=== PATIENT | female | born 1940 | race Caucasian/White ===

== ENCOUNTER 2024-01-30 19:51 | Inpatient (IN) ==
--- NOTE | 2024-01-30 20:13 | Emergency Department Note ---
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 Could not sleep last night to her work of breathing. Not on oxygen during the day normally but used it today with minimal improvement. Usually uses a few liters of oxygen at night. No syncope reported but feels a bit lightheaded. No headache. No abdominal pain or nausea or vomiting. Cough little bit bloody at times. States compliance with home Eliquis. A bit of pain with coughing in the mid chest. No leg swelling. No other sick contacts. States it feels like she has pneumonia she is gets this all the time. Recently switched from [facility] to [facility] here so came here for evaluation. Distant former smoker. States she had testing for CPAP for did not tolerate the mask. Denies significant confusion at this time. PAST MEDICAL HISTORY: As noted above MEDICATIONS: Reviewed home medications SOCIAL HISTORY: , former smoker PHYSICAL EXAM: GENERAL: alert and oriented seated in the stretcher with oxygen on mild tachypnea. Head: normocephalic and atraumatic EYES: No injection, discharge or icterus. EOMI. NECK: Trachea midline. ENT: Mucous membranes pink and moist. LUNGS: Airway patent. Mild work of breathing. Breath sounds with occasional scattered lower feel rhonchi. HEART: Regular rate and rhythm. No chest wall tenderness ABDOMEN: Soft and non-tender, without guarding or rebound. SKIN: Acyanotic, warm, dry, without rashes EXTREMITIES: Without swelling, tenderness or deformity NEUROLOGICAL: No focal deficits. No aphasia. No facial droop or slurred speech. EK bpm normal sinus rhythm. No PVC or PAC. No acute ST segment elevation or depression left axis and QTc of 456. CONTINUOUS CARDIAC MONITORING: was ordered and showed a heart rate of 70s to 80s bpm in normal sinus rhythm Patient's laboratory studies and imaging reviewed. Differential includes Reactive airway disease, pneumonia, pneumothorax, COPD, CHF, infections, cardiac ischemia, pulmonary embolism, musculoskeletal, gastrointestinal, as well as other pathologies. IMPRESSION/MEDICAL DECISION MAKING: Patient ILD/COPD mixed picture according to recent pulmonary note from October that was reviewed from Dr. Cali. Hypoxic on room air. Requiring 5 L oxygen supplementation. Some work of breathing but no encephalopathy. VBG sent blood work sent. Does not appear significantly fluid overloaded. Chest x-ray obtained look for signs of pneumonia or consolidation. Little bit of reproducible mid chest pain likely more from work of breathing. EKG without findings of STEMI. Troponin sent to exclude ACS but lower suspicion. Anticoagulated with Eliquis and lower suspicion for VTE/PE. Afebrile here but respiratory viral panel was checked. Will trial a DuoNeb and a dose of steroids to see if this helps with her symptoms. Respiratory viral panel here negative. Troponin 19.7 not severely elevated no priors for comparison. No evidence of hepatitis. No significant renal dysfunction or severe electrode abnormality. VBG pH of 7.34 CO2 of 57 but no severe acidosis. Normal white count and hemoglobin. 1 view chest x-ray reviewed by myself and interpreted without evidence of pneumothorax. Appears to be some increased airspace opacities. Will cover with a dose of cefepime at this time given her underlying structural lung disease and azithromycin for atypical coverage. Discussed with her given her increased heart requirement and shortness of breath further care at the hospital with her underlying lung disease. Patient was given a dose of steroid and DuoNeb here as well as there may be some component of COPD. Mildly improved still needing almost 5 L of oxygen here to sat in the low 90s. Discussed with her and her recommendations and she is agreeable to stay. Hospitalist contacted. DIAGNOSIS: Hypoxia, pneumonia, COPD exacerbation, ILD DISPOSITION: Hospitalist will evaluate Patient was agreeable with this plan. Past Med/Surg History Problem List (Updated 01/30/24 @ 21:28 by Ed Denise M.D.) PNA (pneumonia) (Acute) Hypoxia (Acute) Pneumoconiosis Ex-smoker SOB (shortness of breath) on exertion AND C/P RANDOM AND WITH ACTIVITY (NO CHANGES FROM BASELINE) FOLLOWS PULMONOLOGY DR ANN/KAN ILD (interstitial lung disease) (Acute) COPD (chronic obstructive pulmonary disease) (Acute) Encounter for pre-operative examination Lumbar stenosis with neurogenic claudication (Acute 03/15/14) Medical History (Updated 01/30/24 @ 21:28 by Ed Denise M.D.) Oxygen dependent O2 4 L HS Sleep apnea DEVICE RECOMMENDED AND DECLINED Legally blind Acoustic neuroma HX GAMMA KNIFE RADIATION Lung cancer DX 2 YR AGO, PT DECLINES TREATMENTS Fibromyalgia History of colon polyps BENIGN Ulcerative colitis Inflammatory bowel disease Celiac disease Back problem Hypothyroid Neuropathy FEET Diarrhea CHRONIC Acid reflux HTN (hypertension) Surgical History History of cardiac cath approx 6 years ago. [facility] [place]. No stents. History of left knee replacement History of foot surgery LEFT History of total right hip replacement History of lung biopsy History of carpal tunnel surgery of right wrist History of carpal tunnel surgery of left wrist History of hysterectomy History of cholecystectomy History of back surgery TOTAL OF 3 , 1 WAS A FUSION History of lumbar fusion Family History Other Family history of diabetes mellitus Social History Smoking Status: Never smoker Second Hand Exposure: No; Do You Dip or Chew Tobacco: No; Hx Alcohol Use: No Hx Substance Use: No Preferred Language: Guatemalan Communication Ability: Effective Communication Ability Comment: LEGALLY BLIND/USES MAGNIFYING GLASS Database Consultant Required: No Beliefs That Will Affect Care: None Current Living Situation: Spouse Feels Safe at Home: Yes Assistive Devices: Denture - Upper, Denture - Lower, Glasses, Oxygen - at Night and Walker Allergies Allergies Allergy/AdvReac Type Severity Reaction Status Date / Time ondansetron Allergy Unknown CAN'T Verified 11/13/23 12:44 BREATHE risedronate sodium Allergy Unknown GI UPSET, Verified 11/13/23 12:44 JAW NUMB rosuvastatin Allergy Unknown SHOULDER Verified 11/13/23 12:44 PAIN simvastatin Allergy Unknown MUSCLE Verified 11/13/23 12:44 SPASMS blue dye AdvReac Unknown VOMITING Verified 11/13/23 12:44 oseltamivir AdvReac Unknown VOMITING Verified 11/13/23 12:44 Home Meds Home Medications Medication Instructions Recorded Confirmed amlodipine 5 mg tablet 5 mg PO HS 12/28/21 01/30/24 ascorbic acid (vitamin C) 1,000 mg 1 g PO QDL 12/28/21 01/30/24 tablet (Vitamin C) aspirin 81 mg tablet,delayed 81 mg PO DAILY 12/28/21 01/30/24 release cholecalciferol (vitamin D3) 25 5,000 unit PO QDL 12/28/21 01/30/24 mcg (1,000 unit) capsule (Vitamin D3) diphenoxylate-atropine 2.5 1 tab PO UD PRN Diarrhea 12/28/21 01/30/24 mg-0.025 mg tablet (Lomotil) gabapentin 600 mg tablet 600 mg PO HS 12/28/21 01/30/24 levothyroxine 75 mcg capsule 75 mcg PO QAM 12/28/21 01/30/24 losartan 100 mg tablet 100 mg PO HS 12/28/21 01/30/24 meloxicam 15 mg tablet 15 mg PO QAM 12/28/21 11/13/23 multivitamin 1 cap PO QDL 12/28/21 01/30/24 omeprazole 20 mg tablet,delayed 20 mg PO BID 12/28/21 01/30/24 release zinc 50 mg capsule 50 mg PO QDL 12/28/21 01/30/24 apixaban 5 mg tablet (Eliquis) 5 mg PO BID 11/13/23 01/30/24 colestipol 1 gram tablet 1 g PO DAILY Diarrhea 11/13/23 01/30/24 Results & Data (ED) Vital Signs Vital Signs - 24 hr 01/30/24 19:53 01/30/24 19:59 01/30/24 20:01 Temperature 36.6 C Temperature Source Temporal Artery Scan Pulse Rate 88 Respiratory Rate 22 Respiratory Effort / Characteristics Non-Labored Spontaneous Respiratory Depth Normal Respiratory Pattern Regular Blood Pressure 178/82 H Blood Pressure Mean 114 Pulse Oximetry 85 L 85 L Oxygen Delivery Method Room Air Nasal Cannula Room Air Oxygen Flow Rate 3 Sepsis Recent Fever Within 48 Hours No Sepsis New/Unexplained Change in Mental Status N/A Sepsis Action Taken by Nursing No Action Required Oxygen Flow Rate - Titration 3 Pulse Oximetry Post Tiitration 91 01/30/24 20:02 01/30/24 20:25 01/30/24 22:06 Temperature Temperature Source Pulse Rate 87 85 Respiratory Rate 26 H Respiratory Effort / Characteristics Respiratory Depth Respiratory Pattern Blood Pressure 167/78 H Blood Pressure Mean 107 Pulse Oximetry 94 Oxygen Delivery Method Nasal Cannula Oxygen Flow Rate 4 Sepsis Recent Fever Within 48 Hours Sepsis New/Unexplained Change in Mental Status Sepsis Action Taken by Nursing Oxygen Flow Rate - Titration Pulse Oximetry Post Tiitration Laboratory Data 01/30/24 20:18 01/30/24 21:43 Lab Results 01/30/24 01/30/24 Range/Units 20:18 21:43 WBC 7.63 (4.8-10.8) K/ul RBC 5.07 (4.20-5.40) M/uL Hgb 14.6 (12.0-16.0) g/dl Hct 45.0 (37.0-47.0) % MCV 88.8 (80.0-100.0) fL MCH 28.8 (25.0-34.0) pg MCHC 32.4 (32.0-36.0) g/dL RDW Std Deviation 44.6 (36.4-46.3) fL RDW Coeff of Alvina 13.8 (11.5-14.5) % Plt Count 271 (130-400) K/uL MPV 8.9 L (9.4-12.4) fL Immature Gran % (Auto) 0.4 % Neut % (Auto) 72.1 % Lymph % (Auto) 15.7 % [place] % (Auto) 6.4 % Eos % (Auto) 5.0 % Baso % (Auto) 0.4 % Neut # (Auto) 5.50 (1.40-6.50) K/uL Lymph # (Auto) 1.20 (1.20-3.40) K/uL [place] # (Auto) 0.49 (0.11-0.59) K/uL Eos # (Auto) 0.38 (0.00-0.50) K/uL Baso # (Auto) 0.03 (0.00-0.20) K/uL Immature Gran # (Auto) 0.03 (0.01-0.20) K/uL PT Cancelled 10.5 INR Cancelled 1.0 APTT Cancelled 31 PTT Ratio Cancelled 1.2 VBG pH 7.34 L (7.36-7.41) VBG pCO2 57 H (38-50) mmHg VBG pO2 25 mmHg VBG HCO3 31 mmol/L VBG O2 Saturation < 60.0 % VBG Base Excess 3.5 mEq/L Sodium 133 L (136-145) mmol/L Potassium TNP 4.0 Chloride 98 (98-107) mmol/L Carbon Dioxide 29 (21-32) mmol/L Anion Gap 6 (3-11) BUN 16 (6-23) mg/dl Creatinine 1.08 (0.6-1.2) mg/dl Est Cr Clr Drug Dosing Not Reportable Est GFR ( Amer) 54.2 ml/min Est GFR (Non-Af Amer) 46.8 ml/min BUN/Creatinine Ratio 14.8 (10-20) Glucose 120 H (70-99(Fasting)) mg/dl Calcium 9.5 (8.6-10.3) mg/dl Magnesium 2.0 (1.7-2.4) mg/dl Total Bilirubin 0.4 (0.2-1.0) mg/dl AST TNP 18 ALT 10 (7-52) U/L Alkaline Phosphatase 106 H (34-104) U/L Troponin I High Sens 19.7 H (0-14) pg/ml Total Protein 7.3 (6.0-8.3) gm/dl Albumin 4.3 (3.4-5.0) gm/dl Globulin 3.0 (2.5-4.0) gm/dl Albumin/Globulin Ratio 1.4 (0.9-2) Urine Color Yellow Urine Appearance Clear (Clear) Urine pH 7.0 (4.5-7.5) Ur Specific [place] 1.009 (1.000-1.030) Urine Protein Negative (Negative) Urine Glucose (UA) Negative (Negative) Urine Ketones Negative (Negative) Urine Blood Negative (Negative) Urine Nitrite Negative (Negative) Urine Bilirubin Negative (Negative) Urine Urobilinogen Negative (Negative) Ur Leukocyte Esterase Trace H (Negative) Urine WBC (Auto) 0-5 (0-5) /hpf Urine RBC (Auto) 0-2 (0-2) /hpf U Hyaline Cast (Auto) 0-2 (0-2) /lpf U Epithel Cells (Auto) 0-2 (0-2) /hpf Urine Bacteria (Auto) None Seen (None Seen) Adenovirus (PCR) Not Detected (NotDetected) B. pertussis DNA (PCR) Not Detected (NotDetected) B.parapertussis DNA PCR Not Detected (NotDetected) C. pneumoniae DNA (PCR) Not Detected (NotDetected) Coronavirus OC43 (PCR) Not Detected (NotDetected) Coronavirus HKU1 (PCR) Not Detected (NotDetected) Coronavirus 229E (PCR) Not Detected (NotDetected) SARS-CoV-2 (PCR) Not Detected (NotDetected) Coronavirus NL63 (PCR) Not Detected (NotDetected) Human Metapneumovir PCR Not Detected (NotDetected) Influenza Type A (PCR) Not Detected (NotDetected) Influenza Type B (PCR) Not Detected (NotDetected) M. pneumoniae (PCR) Not Detected (NotDetected) Parainfluenza 1 (PCR) Not Detected (NotDetected) Parainfluenza 2 (PCR) Not Detected (NotDetected) Parainfluenza 3 (PCR) Not Detected (NotDetected) Parainfluenza 4 (PCR) Not Detected (NotDetected) RSV (PCR) Not Detected (NotDetected) Entero/Rhino (PCR) Not Detected (NotDetected) Administered Medications Discontinued Medications Albuterol (Albut/Ipratrop 3mg/0.5mg Neb 3 Ml Vial) 3 ml NEB NOW STA; Protocol Stop: 01/30/24 20:14 Last Admin: 01/30/24 20:32 Dose: 3 ml Documented By: TYLER Azithromycin (Azithromycin 250 Mg Tab) 500 mg PO NOW ONE Stop: 01/30/24 21:49 Last Admin: 01/30/24 22:03 Dose: 500 mg Documented By: TYLER Cefepime HCl (Maxipime) 2,000 mg in 20 mls @ 5 mls/min IV NOW STA; Protocol Stop: 01/30/24 21:50 Last Admin: 01/30/24 22:03 Dose: 5 mls/min Documented By: TYLER Methylprednisolone (Methylprednisolone 125 Mg/2 Ml Vial) 60 mg IV NOW STA Stop: 01/30/24 20:14 Last Admin: 01/30/24 20:33 Dose: 60 mg Documented By: TYLER Discharge Plan Visit Data Chief Complaint: Shortness of Breath/Dyspnea Stated Complaint: SPITTING UP BLOOD, PNEUMONIA, SOB ED Provider: Ed Denise Discharge Problem: Hypoxia, COPD (chronic obstructive pulmonary disease), ILD (interstitial lung disease), PNA (pneumonia) Patient Disposition: Being Evaluated by Hospitalist Forms Stand Alone Forms: My [facility] Prescriptions Prescriptions: No Action Eliquis 5 mg tablet 5 mg PO BID Patient Comments: "only takes it once a day" ascorbic acid (vitamin C) [Vitamin C] 1,000 mg Tablet 1 g PO QDL Patient Comments: LUNCH OR DINNER gabapentin 600 mg Tablet 600 mg PO HS meloxicam 15 mg Tablet 15 mg PO QAM diphenoxylate-atropine [Lomotil] 2.5-0.025 mg Tablet 1 tab PO UD PRN (Reason: Diarrhea) amlodipine 5 mg Tablet 5 mg PO HS aspirin 81 mg Tablet,Delayed Release (Dr/Ec) 81 mg PO DAILY losartan 100 mg Tablet 100 mg PO HS multivitamin Capsule 1 cap PO QDL cholecalciferol (vitamin D3) [Vitamin D3] 25 mcg (1,000 unit) Capsule 5,000 unit PO QDL Patient Comments: LUNCH OR DINNER, IT VARIES zinc 50 mg Capsule 50 mg PO QDL Patient Comments: WITH LUNCH OR DINNER omeprazole 20 mg Tablet,Delayed Release (Dr/Ec) 20 mg PO BID levothyroxine 75 mcg Capsule 75 mcg PO QAM colestipol 1 gram tablet 1 g PO DAILY Patient Comments: USUALLY ONCE OR TWICE A DAY Referrals Referrals: Masood Sin MD [Primary Care Provider] -
[2024-01-30] MEDS: ALBUT/IPRATROP 3MG/0.5MG NEB 3 ML VIAL NEB STA (20:32)
[2024-01-30] MEDS: methylPREDNISolone 125 MG/2 ML VIAL IV STA (20:33)
[2024-01-30 20:38] LABS: Basophils # (auto) 0.03 K/uL (0.00-0.20); Basophils % (auto) 0.4 %; Eosinophils # (auto) 0.38 K/uL (0.00-0.50); Hemoglobin 14.6 g/dl (12.0-16.0); Immature Granulocytes # (auto) 0.03 K/uL (0.01-0.20); Immature Granulocytes % (auto) 0.4 %; Lymphocytes % (auto) 15.7 %; Mean Corpuscular Hemoglobin 28.8 pg (25.0-34.0); Mean Corpuscular Hgb Conc 32.4 g/dL (32.0-36.0); Mean Corpuscular Volume 88.8 fL (80.0-100.0); Mean Platelet Volume 8.9 fL (9.4-12.4); Monocytes # (auto) 0.49 K/uL (0.11-0.59); Monocytes % (auto) 6.4 %; Neutrophils % (auto) 72.1 %; Platelet Count 271 K/uL (130-400); RDW Coefficient of Variation 13.8 % (11.5-14.5); RDW Standard Deviation 44.6 fL (36.4-46.3); Red Blood Count 5.07 M/uL (4.20-5.40); White Blood Count 7.63 K/ul (4.8-10.8)
[2024-01-30 20:39] LABS: Base Excess VBG 3.5 mEq/L; HCO3 VBG 31 mmol/L; Oxygen Saturation VBG < 60.0 %; PCO2 VBG 57 mmHg (38-50); PO2 VBG 25 mmHg; pH VBG 7.34 (7.36-7.41)
[2024-01-30 21:09] LABS: Alanine Aminotransferase 10 U/L (7-52); Albumin Globulin Ratio 1.4 (0.9-2); Albumin Level 4.3 gm/dl (3.4-5.0); Alkaline Phosphatase 106 U/L (34-104); Anion Gap 6 (3-11); BUN Creatinine Ratio 14.8 (10-20); Bilirubin,Total 0.4 mg/dl (0.2-1.0); Blood Urea Nitrogen 16 mg/dl (6-23); Calcium 9.5 mg/dl (8.6-10.3); Carbon Dioxide 29 mmol/L (21-32); Chloride 98 mmol/L (98-107); Est GFR (African American) 54.2 ml/min; Est GFR (Non-African American) 46.8 ml/min; Glucose 120 mg/dl (70-99(Fasting)); Sodium 133 mmol/L (136-145); Total Protein 7.3 gm/dl (6.0-8.3); Troponin I High Sensitivity 19.7 pg/ml (0-14)
[2024-01-30 21:20] LABS: Adenovirus PCR Not Detected (NotDetected); Bordetella parapertussis PCR Not Detected (NotDetected); Bordetella pertussis PCR Not Detected (NotDetected); Chlamydia pneumoniae PCR Not Detected (NotDetected); Coronavirus 229E PCR Not Detected (NotDetected); Coronavirus CoV-2 (COVID19)PCR Not Detected (NotDetected); Coronavirus HKU1 PCR Not Detected (NotDetected); Coronavirus NL63 PCR Not Detected (NotDetected); Coronavirus OC43PCR Not Detected (NotDetected); Human Metapneumovirus PCR Not Detected (NotDetected); Influenza A PCR Not Detected (NotDetected); Influenza B PCR Not Detected (NotDetected); Mycoplasma pneumoniae PCR Not Detected (NotDetected); Parainfluenza Virus 1 PCR Not Detected (NotDetected); Parainfluenza Virus 2 PCR Not Detected (NotDetected); Parainfluenza Virus 3 PCR Not Detected (NotDetected); Parainfluenza Virus 4 PCR Not Detected (NotDetected); Respiratory Syncytial VirusPCR Not Detected (NotDetected); Rhinovirus/Enterovirus PCR Not Detected (NotDetected)
[2024-01-30] MEDS: AZITHROMYCIN 250 MG TAB PO ONE (22:03)
[2024-01-30] MEDS: CEFEPIME 2,000 MG/20 ML VIAL IV STA (22:03)
[2024-01-30 22:11] LABS: Appearance Urine Clear (Clear); Bacteria Urine Automated None Seen (None Seen); Bilirubin Urine Negative (Negative); Blood Urine Negative (Negative); Cast Urine Automated 0-2 /lpf (0-2); Color Urine Yellow; Epithelial Cell Urine Auto 0-2 /hpf (0-2); Glucose Urine UA Negative (Negative); Ketones Urine Negative (Negative); Leukocyte Esterase Urine Trace (Negative); Nitrite Urine Negative (Negative); Protein Urine Negative (Negative); RBC Urine Automated 0-2 /hpf (0-2); Specific Gravity Urine 1.009 (1.000-1.030); Urobilinogen Urine Negative (Negative); WBC Urine Automated 0-5 /hpf (0-5)
[2024-01-30 22:41] LABS: Partial Thromboplastin Ratio 1.2; Partial Thromboplastin Time 31 Seconds (21-31); Prothrombin Time 10.5 Seconds (9.0-12.0)
--- NOTE | 2024-01-30 23:28 | History & Physical Report ---
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 Patient follows with Pulmonary - sees Dr. Cali. She has had 2 days of worsening chest congestion and moist cough and sensation of chest rattling. This evening around 18:00 she developed some hemoptysis. She reports bright red blood expectorated at first then reduced to pink in color. No report of allergy symptoms or URI symptoms. No sick contacts. She denies fever, chills. She does have some chest discomfort as well. In the ER she is afebrile, HD stable 85% on room air - improved with supplemental O2 Allergies Allergy/AdvReac Type Severity Reaction Status Date / Time ondansetron Allergy Unknown CAN'T Verified 11/13/23 12:44 BREATHE risedronate sodium Allergy Unknown GI UPSET, Verified 11/13/23 12:44 JAW NUMB rosuvastatin Allergy Unknown SHOULDER Verified 11/13/23 12:44 PAIN simvastatin Allergy Unknown MUSCLE Verified 11/13/23 12:44 SPASMS blue dye AdvReac Unknown VOMITING Verified 11/13/23 12:44 oseltamivir AdvReac Unknown VOMITING Verified 11/13/23 12:44 Home Medications Medication Instructions Recorded Confirmed Type amlodipine 5 mg tablet 5 mg PO HS 12/28/21 01/30/24 History ascorbic acid (vitamin C) 1,000 mg 1 g PO QDL 12/28/21 01/30/24 History tablet (Vitamin C) aspirin 81 mg tablet,delayed 81 mg PO DAILY 12/28/21 01/30/24 History release cholecalciferol (vitamin D3) 25 5,000 unit PO QDL 12/28/21 01/30/24 History mcg (1,000 unit) capsule (Vitamin D3) diphenoxylate-atropine 2.5 1 tab PO UD PRN Diarrhea 12/28/21 01/30/24 History mg-0.025 mg tablet (Lomotil) gabapentin 600 mg tablet 600 mg PO HS 12/28/21 01/30/24 History levothyroxine 75 mcg capsule 75 mcg PO QAM 12/28/21 01/30/24 History losartan 100 mg tablet 100 mg PO HS 12/28/21 01/30/24 History meloxicam 15 mg tablet 15 mg PO QAM 12/28/21 11/13/23 History multivitamin 1 cap PO QDL 12/28/21 01/30/24 History omeprazole 20 mg tablet,delayed 20 mg PO BID 12/28/21 01/30/24 History release zinc 50 mg capsule 50 mg PO QDL 12/28/21 01/30/24 History apixaban 5 mg tablet (Eliquis) 5 mg PO BID 11/13/23 01/30/24 History colestipol 1 gram tablet 1 g PO DAILY Diarrhea 11/13/23 01/30/24 History Past Med/Surg History Problem List PNA (pneumonia) (Acute) Hypoxia (Acute) Pneumoconiosis Ex-smoker SOB (shortness of breath) on exertion AND C/P RANDOM AND WITH ACTIVITY (NO CHANGES FROM BASELINE) FOLLOWS PULMONOLOGY DR ANN/KAN ILD (interstitial lung disease) (Acute) COPD (chronic obstructive pulmonary disease) (Acute) Encounter for pre-operative examination Lumbar stenosis with neurogenic claudication (Acute 03/15/14) Medical History Oxygen dependent O2 4 L HS Sleep apnea DEVICE RECOMMENDED AND DECLINED Legally blind Acoustic neuroma HX GAMMA KNIFE RADIATION Lung cancer DX 2 YR AGO, PT DECLINES TREATMENTS Fibromyalgia History of colon polyps BENIGN Ulcerative colitis Inflammatory bowel disease Celiac disease Back problem Hypothyroid Neuropathy FEET Diarrhea CHRONIC Acid reflux HTN (hypertension) Surgical History History of cardiac cath approx 6 years ago. [facility] [place]. No stents. History of left knee replacement History of foot surgery LEFT History of total right hip replacement History of lung biopsy History of carpal tunnel surgery of right wrist History of carpal tunnel surgery of left wrist History of hysterectomy History of cholecystectomy History of back surgery TOTAL OF 3 , 1 WAS A FUSION History of lumbar fusion Family History Other Family history of diabetes mellitus Social History Smoking Status: Former smoker Second Hand Exposure: No; Do You Dip or Chew Tobacco: No; Hx Alcohol Use: No Hx Substance Use: No Preferred Language: Congolese Communication Ability: Effective Communication Ability Comment: LEGALLY BLIND/USES MAGNIFYING GLASS See Supervisor Required: No Beliefs That Will Affect Care: None Current Living Situation: Spouse Feels Safe at Home: Yes Assistive Devices: Walker Review of Systems Review of Systems: All systems reviewed & are unremarkable except as noted in HPI & below Physical Exam Physical Exam: General: patient resting comfortably, NAD, non-toxic in appearance, AA&O x 4 Skin: warm, dry, intact, no rashes or lesions HEENT: NC/AT, PERRL, EOMI, anicteric sclera, conjunctiva without injection, external ear normal to inspection and nontender, nares patent, moist mucus membranes, dentition intact, no oropharyngeal lesions, neck supple, trachea midline, no LAD, no thyromegaly, no JVD Heart: +S1/S2, irregularly irregular, 3/6 DOMENICA at right 2nd ICS Lungs: equal air entry bilaterally, diffuse rhonchi R>L, scattered end- expiratory wheezing Abd: +BS, soft, NT/ND, no masses/organomegaly/ascites Ext: warm, 2+ pulses in UE/LE bilaterally, no clubbing/cyanosis or edema Neuro: nonfocal, patient AA&O x 4, speech intact, no facial droop, moving all extremities on command with equal strength 5/5 Results & Data Results & Data Vital Signs (Past 12 Hours) Vital Signs Temp Pulse Resp BP Pulse Ox O2 Del Method O2 Flow Rate 01/30/24 22:06 85 26 H 167/78 H 01/30/24 20:25 94 Nasal Cannula 4 01/30/24 20:02 87 01/30/24 20:01 85 L Room Air 01/30/24 19:59 Nasal Cannula 3 01/30/24 19:53 36.6 C 88 22 178/82 H 85 L Room Air Laboratory Results Laboratory Results WBC 7.63 K/ul (4.8-10.8) 01/30/24 20:18 RBC 5.07 M/uL (4.20-5.40) 01/30/24 20:18 Hgb 14.6 g/dl (12.0-16.0) 01/30/24 20:18 Hct 45.0 % (37.0-47.0) 01/30/24 20:18 MCV 88.8 fL (80.0-100.0) 01/30/24 20:18 MCH 28.8 pg (25.0-34.0) 01/30/24 20:18 MCHC 32.4 g/dL (32.0-36.0) 01/30/24 20:18 RDW Std Deviation 44.6 fL (36.4-46.3) 01/30/24 20:18 RDW Coeff of Alvina 13.8 % (11.5-14.5) 01/30/24 20:18 Plt Count 271 K/uL (130-400) 01/30/24 20:18 MPV 8.9 fL (9.4-12.4) L 01/30/24 20:18 Immature Gran % (Auto) 0.4 % 01/30/24 20:18 Neut % (Auto) 72.1 % 01/30/24 20:18 Lymph % (Auto) 15.7 % 01/30/24 20:18 Marshall % (Auto) 6.4 % 01/30/24 20:18 Eos % (Auto) 5.0 % 01/30/24 20:18 Baso % (Auto) 0.4 % 01/30/24 20:18 Neut # (Auto) 5.50 K/uL (1.40-6.50) 01/30/24 20:18 Lymph # (Auto) 1.20 K/uL (1.20-3.40) 01/30/24 20:18 Marshall # (Auto) 0.49 K/uL (0.11-0.59) 01/30/24 20:18 Eos # (Auto) 0.38 K/uL (0.00-0.50) 01/30/24 20:18 Baso # (Auto) 0.03 K/uL (0.00-0.20) 01/30/24 20:18 Immature Gran # (Auto) 0.03 K/uL (0.01-0.20) 01/30/24 20:18 PT 10.5 Seconds (9.0-12.0) 01/30/24 21:43 INR 1.0 (0.9-1.1) 01/30/24 21:43 APTT 31 Seconds (21-31) 01/30/24 21:43 PTT Ratio 1.2 01/30/24 21:43 VBG pH 7.34 (7.36-7.41) L 01/30/24 20:18 VBG pCO2 57 mmHg (38-50) H 01/30/24 20:18 VBG pO2 25 mmHg 01/30/24 20:18 VBG HCO3 31 mmol/L 01/30/24 20:18 VBG O2 Saturation < 60.0 % 01/30/24 20:18 VBG Base Excess 3.5 mEq/L 01/30/24 20:18 Sodium 133 mmol/L (136-145) L 01/30/24 20:18 Potassium 4.0 mmol/L (3.5-5.1) 01/30/24 21:43 Chloride 98 mmol/L (98-107) 01/30/24 20:18 Carbon Dioxide 29 mmol/L (21-32) 01/30/24 20:18 Anion Gap 6 (3-11) 01/30/24 20:18 BUN 16 mg/dl (6-23) 01/30/24 20:18 Creatinine 1.08 mg/dl (0.6-1.2) 01/30/24 20:18 Est Cr Clr Drug Dosing Not Reportable 01/30/24 20:18 Est GFR ( Amer) 54.2 ml/min 01/30/24 20:18 Est GFR (Non-Af Amer) 46.8 ml/min 01/30/24 20:18 BUN/Creatinine Ratio 14.8 (10-20) 01/30/24 20:18 Glucose 120 mg/dl (70-99(Fasting)) H 01/30/24 20:18 Calcium 9.5 mg/dl (8.6-10.3) 01/30/24 20:18 Phosphorus 3.6 mg/dl (2.5-4.9) 01/30/24 21:43 Magnesium 2.0 mg/dl (1.7-2.4) 01/30/24 20:18 Total Bilirubin 0.4 mg/dl (0.2-1.0) 01/30/24 20:18 AST 18 U/L (13-39) 01/30/24 21:43 ALT 10 U/L (7-52) 01/30/24 20:18 Alkaline Phosphatase 106 U/L (34-104) H 01/30/24 20:18 Troponin I High Sens 19.7 pg/ml (0-14) H 01/30/24 20:18 Total Protein 7.3 gm/dl (6.0-8.3) 01/30/24 20:18 Albumin 4.3 gm/dl (3.4-5.0) 01/30/24 20:18 Globulin 3.0 gm/dl (2.5-4.0) 01/30/24 20:18 Albumin/Globulin Ratio 1.4 (0.9-2) 01/30/24 20:18 Procalcitonin < 0.02 ng/ml (0-0.5) 01/30/24 20:18 Urine Color Yellow 01/30/24 21:43 Urine Appearance Clear (Clear) 01/30/24 21:43 Urine pH 7.0 (4.5-7.5) 01/30/24 21:43 Ur Specific [place] 1.009 (1.000-1.030) 01/30/24 21:43 Urine Protein Negative (Negative) 01/30/24 21:43 Urine Glucose (UA) Negative (Negative) 01/30/24 21:43 Urine Ketones Negative (Negative) 01/30/24 21:43 Urine Blood Negative (Negative) 01/30/24 21:43 Urine Nitrite Negative (Negative) 01/30/24 21:43 Urine Bilirubin Negative (Negative) 01/30/24 21:43 Urine Urobilinogen Negative (Negative) 01/30/24 21:43 Ur Leukocyte Esterase Trace (Negative) H 01/30/24 21:43 Urine WBC (Auto) 0-5 /hpf (0-5) 01/30/24 21:43 Urine RBC (Auto) 0-2 /hpf (0-2) 01/30/24 21:43 U Hyaline Cast (Auto) 0-2 /lpf (0-2) 01/30/24 21:43 U Epithel Cells (Auto) 0-2 /hpf (0-2) 01/30/24 21:43 Urine Bacteria (Auto) None Seen (None Seen) 01/30/24 21:43 Adenovirus (PCR) Not Detected (NotDetected) 01/30/24 20:18 B. pertussis DNA (PCR) Not Detected (NotDetected) 01/30/24 20:18 B.parapertussis DNA PCR Not Detected (NotDetected) 01/30/24 20:18 C. pneumoniae DNA (PCR) Not Detected (NotDetected) 01/30/24 20:18 Coronavirus OC43 (PCR) Not Detected (NotDetected) 01/30/24 20:18 Coronavirus HKU1 (PCR) Not Detected (NotDetected) 01/30/24 20:18 Coronavirus 229E (PCR) Not Detected (NotDetected) 01/30/24 20:18 SARS-CoV-2 (PCR) Not Detected (NotDetected) 01/30/24 20:18 Coronavirus NL63 (PCR) Not Detected (NotDetected) 01/30/24 20:18 Human Metapneumovir PCR Not Detected (NotDetected) 01/30/24 20:18 Influenza Type A (PCR) Not Detected (NotDetected) 01/30/24 20:18 Influenza Type B (PCR) Not Detected (NotDetected) 01/30/24 20:18 M. pneumoniae (PCR) Not Detected (NotDetected) 01/30/24 20:18 Parainfluenza 1 (PCR) Not Detected (NotDetected) 01/30/24 20:18 Parainfluenza 2 (PCR) Not Detected (NotDetected) 01/30/24 20:18 Parainfluenza 3 (PCR) Not Detected (NotDetected) 01/30/24 20:18 Parainfluenza 4 (PCR) Not Detected (NotDetected) 01/30/24 20:18 RSV (PCR) Not Detected (NotDetected) 01/30/24 20:18 Entero/Rhino (PCR) Not Detected (NotDetected) 01/30/24 20:18 Diagnostic Findings CXR with worsening bilateral airspace opacities when compared with prior Code Status & VTE Plan VTE Prophylaxis Plan VTE Prophylaxis will be ordered: Yes PG Care Time/CCT Total # of Minutes Spent Total Time Spent with Patient: Total time spent is greater than 50% in coordination of care (as documented) at patient's floor/unit and/or counseling patient: Coding Level of Care Code 57078 INT INP/OBS CARE 3/75MIN Diagnoses PNA (pneumonia) J18.9 Hypoxia R09.02 Pneumoconiosis J64
[2024-01-31] MEDS ORDERED: ONDANSETRON INJ 2 MG/ML 2 ML VIAL IV PRN (01:27)
[2024-01-31] MEDS ORDERED: ALBUTEROL 0.083% NEBU SOLN 3 ML VIAL NEB PRN (01:27)
[2024-01-31 01:56] LABS: Phosphorus 3.6 mg/dl (2.5-4.9)
[2024-01-31] MEDS: LOSARTAN POTASSIUM 50 MG TAB PO STA (02:10)
[2024-01-31] MEDS: ALBUT/IPRATROP 3MG/0.5MG NEB 3 ML VIAL ONE (02:11)
[2024-01-31] MEDS: PANTOprazole 40 MG TAB PO STA (02:11)
[2024-01-31] MEDS: amLODIPine BESYLATE 5 MG TAB PO ONE (02:11)
[2024-01-31] MEDS: GABAPENTIN 600 MG TAB PO STA (02:12)
[2024-01-31] MEDS: ALBUT/IPRATROP 3MG/0.5MG NEB 3 ML VIAL NEB SCH (02:15)
[2024-01-31] MEDS: LEVOTHYROXINE SODIUM 75 MCG TABLET PO SCH (05:55)
[2024-01-31 06:24] LABS: Hemoglobin 13.9 g/dl (12.0-16.0); Mean Corpuscular Hemoglobin 29.1 pg (25.0-34.0); Mean Corpuscular Hgb Conc 33.9 g/dL (32.0-36.0); Mean Corpuscular Volume 85.8 fL (80.0-100.0); Mean Platelet Volume 9.1 fL (9.4-12.4); Platelet Count 251 K/uL (130-400); RDW Coefficient of Variation 13.4 % (11.5-14.5); RDW Standard Deviation 42.3 fL (36.4-46.3); Red Blood Count 4.78 M/uL (4.20-5.40); White Blood Count 5.12 K/ul (4.8-10.8)
[2024-01-31 06:44] LABS: Est GFR (African American) 80.3 ml/min; Est GFR (Non-African American) 69.3 ml/min
[2024-01-31 06:53] LABS: BUN Creatinine Ratio 17.9 (10-20); Calcium 9.3 mg/dl (8.6-10.3); Potassium 4.2 mmol/L (3.5-5.1); Troponin I High Sensitivity 23.8 pg/ml (0-14)
--- NOTE | 2024-01-31 07:10 | XRay Report ---
XR chest 1V portable HISTORY: 83 years-old Female Dyspnea acute shortness of breath COMPARISON: Chest CT 11/07/2023 TECHNIQUE: AP view of the chest FINDINGS: Cardiac silhouette is enlarged. Pulmonary vascular congestion. No pneumothorax. Calcified mediastinal and hilar lymph nodes with irregular mixed interstitial and alveolar opacities redemonstrated. Super ior elevation of the rose. Small pleural effusions. Bones appear grossly intact. Surgical clip projec ts over the left chest. IMPRESSION: 1. Cardiomegaly with suggestion mild pulmonary edema and small pleural effusions. 2. 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 ACT 112: Negative or not required by law. The above report was generated using voice recognition software. It may contain grammatical, syntax o r spelling errors. Electronically signed by: Frederic Neville M.D. 01/31/2024 7:09 AM
[2024-01-31] MEDS: ASPIRIN 81 MG ECTAB PO SCH (08:21)
[2024-01-31] MEDS: CEFEPIME 2,000 MG in SYRINGE 0 ML IV SCH (08:22)
[2024-01-31] MEDS: guaiFENesin 600 MG TABCR PO SCH (08:22)
[2024-01-31] MEDS: PANTOprazole 40 MG TAB PO SCH (08:23)
--- NOTE | 2024-01-31 08:38 | Electrocardiogram Report ---
Test Reason : Blood Pressure : */* mmHG Vent. Rate : 84 BPM Atrial Rate : 84 BPM P-R Int : 192 ms QRS Dur : 72 ms QT Int : 386 ms P-R-T Axes : 58 -65 47 degrees QTcB Int : 456 ms Normal sinus rhythm Left axis deviation Abnormal ECG When compared with ECG of 23-Feb-2014 14:34, QRS axis Shifted left Confirmed by Delbert Medrano ([id number] on 01/31/2024 8:37:53 AM Referred By: REFERRED SELF Confirmed By: Delbert Medrano
[2024-01-31] MEDS ORDERED: APIXABAN 5 MG TABLET PO SCH (09:00)
--- NOTE | 2024-01-31 09:23 | Pulmonary Consultation ---
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 May be an infectious etiology. Her chest x-ray shows diffuse infiltrates. She has been treated for pneumonia and hemoptysis has resolved. She does have GERD. Recommendations: 1. Hemoptysis: Currently resolved. Suspect either related to coughing, or potentially a bronchitic complaint. Would continue to hold anticoagulation for 24 to 48 hours to ensure that hemoptysis resolves prior to restarting. Her indication for anticoagulation appears to be A-fib. 2. Exacerbation of bronchiectasis/ILD. Cannot rule out infectious component although procalcitonin was negative. She has been initiated on cefepime which appears reasonable for now. Will obtain respiratory cultures. Can likely de-escalate antibiotics in the next 24 hours based on clinical response. Of note her white blood cell count is normal. 3. Hypoxemic respiratory failure: Secondary to #1 and #2. Continue to wean oxygen as tolerated. 4. ILD, no indication for steroids currently. Continue bronchodilators. 5. GERD: Patient takes omeprazole but apparently this is ineffectual. Consideration for Carafate or H2 bobo might be appropriate and is deferred to the primary admitting service. Anticipate relatively short hospitalization and outpatient follow-up with Dr. Cali. Will continue to follow with you. Feel free to contact us with questions or concerns History of Present Illness Attending Physician: Jonas Corrales History of Present Illness Asked by hospitalist to assist in evaluation management this patient admitted with shortness of breath, hemoptysis, and probable exacerbation of her bronchiectasis. History is obtained from discussion with the patient as well as review the electronic medical record. 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 She was followed previously by [facility] and has recently transitioned care to our practice. She sees Dr. Cali in the outpatient setting and was just seen about 3 months ago. She states that yesterday she developed increasing shortness of breath associated with some hemoptysis. Initially she had scant andrew hemoptysis which was scant but this turned into a pink-tinged phlegm. Her last episode of hemoptysis was greater than 12 hours ago. She not had any fevers chills or night sweats. Her shortness of breath is better this morning. She typically uses 5 L of oxygen at night. She is supposed to use it during the day but she states she is not always compliant with it. She does not report any wheezing. No ill contacts. Patient was seen in the emergency room. An x-ray was performed which revealed diffuse parenchymal opacities. She was treated with antibiotics and admitted to the hospitalist service. This morning the patient states she feels well. Her biggest complaint currently is nocturnal GERD. She is on some medication for that but states that despite the medication she continues to have breakthrough symptoms. This appears to be the most pressing issue for her currently. She does sleep with her head of bed elevated Allergies Allergy/AdvReac Type Severity Reaction Status Date / Time ondansetron Allergy Unknown CAN'T Verified 11/13/23 12:44 BREATHE risedronate sodium Allergy Unknown GI UPSET, Verified 11/13/23 12:44 JAW NUMB rosuvastatin Allergy Unknown SHOULDER Verified 11/13/23 12:44 PAIN simvastatin Allergy Unknown MUSCLE Verified 11/13/23 12:44 SPASMS blue dye AdvReac Unknown VOMITING Verified 11/13/23 12:44 oseltamivir AdvReac Unknown VOMITING Verified 11/13/23 12:44 Home Medications Medication Instructions Recorded Confirmed Type amlodipine 5 mg tablet 5 mg PO HS 12/28/21 01/30/24 History ascorbic acid (vitamin C) 1,000 mg 1 g PO QDL 12/28/21 01/30/24 History tablet (Vitamin C) aspirin 81 mg tablet,delayed 81 mg PO DAILY 12/28/21 01/30/24 History release cholecalciferol (vitamin D3) 25 5,000 unit PO QDL 12/28/21 01/30/24 History mcg (1,000 unit) capsule (Vitamin D3) diphenoxylate-atropine 2.5 1 tab PO UD PRN Diarrhea 12/28/21 01/30/24 History mg-0.025 mg tablet (Lomotil) gabapentin 600 mg tablet 600 mg PO HS 12/28/21 01/30/24 History levothyroxine 75 mcg capsule 75 mcg PO QAM 12/28/21 01/30/24 History losartan 100 mg tablet 100 mg PO HS 12/28/21 01/30/24 History meloxicam 15 mg tablet 15 mg PO QAM 12/28/21 11/13/23 History multivitamin 1 cap PO QDL 12/28/21 01/30/24 History omeprazole 20 mg tablet,delayed 20 mg PO BID 12/28/21 01/30/24 History release zinc 50 mg capsule 50 mg PO QDL 12/28/21 01/30/24 History apixaban 5 mg tablet (Eliquis) 5 mg PO BID 11/13/23 01/30/24 History colestipol 1 gram tablet 1 g PO DAILY Diarrhea 11/13/23 01/30/24 History Patient History Medical History Oxygen dependent O2 4 L HS Sleep apnea DEVICE RECOMMENDED AND DECLINED Legally blind Acoustic neuroma HX GAMMA KNIFE RADIATION Lung cancer DX 2 YR AGO, PT DECLINES TREATMENTS Fibromyalgia History of colon polyps BENIGN Ulcerative colitis Inflammatory bowel disease Celiac disease Back problem Hypothyroid Neuropathy FEET Diarrhea CHRONIC Acid reflux HTN (hypertension) Surgical History History of cardiac cath approx 6 years ago. [facility] [place]. No stents. History of left knee replacement History of foot surgery LEFT History of total right hip replacement History of lung biopsy History of carpal tunnel surgery of right wrist History of carpal tunnel surgery of left wrist History of hysterectomy History of cholecystectomy History of back surgery TOTAL OF 3 , 1 WAS A FUSION History of lumbar fusion Family History Other Family history of diabetes mellitus Social History Smoking Status: Former smoker Second Hand Exposure: No; Do You Dip or Chew Tobacco: No; Hx Alcohol Use: No Hx Substance Use: No Preferred Language: [place] Communication Ability: Effective Communication Ability Comment: LEGALLY BLIND/USES MAGNIFYING GLASS Political Science Research Assistant Required: No Beliefs That Will Affect Care: None Current Living Situation: Spouse Feels Safe at Home: Yes Assistive Devices: Walker Review of Systems Review of Systems: All systems reviewed & are unremarkable except as noted in Subjective Physical Exam Constitutional: WD/WN, vitals as above Neck: trachea midline, no thyromegaly Respiratory: no respiratory distress, no labored breathing, no cough and not tachypneic Auscultation: + crackles and + rhonchi; no wheezes Cardiovascular: RRR, no murmur, no edema Gastrointestinal (Abdomen): normal bowel sounds, soft, nontender, no hepatosplenomegaly Musculoskeletal: Extremities: extremities normal to inspection Skin: no rashes, warm and dry Neurologic: Nonfocal exam Lymphatic: no cervical lymphadenopathy Results & Data Results & Data Vital Signs (Past 12 Hours) Vital Signs Temp Pulse Pulse Resp BP BP Pulse Ox 01/31/24 08:16 36.5 C 73 20 131/76 94 01/31/24 07:17 63 15 98 01/31/24 07:02 79 01/31/24 02:21 36.5 C 81 18 154/75 H 96 01/31/24 01:07 01/31/24 01:07 36.8 C 20 92 01/31/24 00:38 86 01/30/24 22:06 85 26 H 167/78 H O2 Del Method O2 Flow Rate 01/31/24 08:16 Room Air 01/31/24 07:17 Nasal Cannula 4 01/31/24 07:02 01/31/24 02:21 Nasal Cannula 4 01/31/24 01:07 Nasal Cannula 4 01/31/24 01:07 Nasal Cannula 4 01/31/24 00:38 01/30/24 22:06 Critical Care Results & Data Vital Signs (Past 12 Hours) Vital Signs Temp Pulse Pulse Resp BP BP Pulse Ox 01/31/24 08:16 36.5 C 73 20 131/76 94 01/31/24 07:17 63 15 98 01/31/24 07:02 79 01/31/24 02:21 36.5 C 81 18 154/75 H 96 01/31/24 01:07 01/31/24 01:07 36.8 C 20 92 01/31/24 00:38 86 01/30/24 22:06 85 26 H 167/78 H O2 Del Method O2 Flow Rate 01/31/24 08:16 Room Air 01/31/24 07:17 Nasal Cannula 4 01/31/24 07:02 01/31/24 02:21 Nasal Cannula 4 01/31/24 01:07 Nasal Cannula 4 01/31/24 01:07 Nasal Cannula 4 01/31/24 00:38 01/30/24 22:06 Lab & Micro Results (Past 24 Hours) RBC 4.78 M/uL (4.20-5.40) 01/31/24 WBC 5.12 K/ul (4.8-10.8) 01/31/24 Hgb 13.9 g/dl (12.0-16.0) 01/31/24 Hct 41.0 % (37.0-47.0) 01/31/24 MCV 85.8 fL (80.0-100.0) 01/31/24 MCH 29.1 pg (25.0-34.0) 01/31/24 MCHC 33.9 g/dL (32.0-36.0) 01/31/24 RDW Standard Deviation 42.3 fL (36.4-46.3) 01/31/24 RDW Coefficient of Variation 13.4 % (11.5-14.5) 01/31/24 Plt Count 251 K/uL (130-400) 01/31/24 MPV 9.1 fL (9.4-12.4) L 01/31/24 Neutrophils (%) (Auto) 72.1 % 01/30/24 Lymphocytes (%) (Auto) 15.7 % 01/30/24 Monocytes # (Auto) 0.49 K/uL (0.11-0.59) 01/30/24 Eosinophils # (Auto) 0.38 K/uL (0.00-0.50) 01/30/24 Immature Granulocyte % (Auto) 0.4 % 01/30/24 Neutrophils # (Auto) 5.50 K/uL (1.40-6.50) 01/30/24 Lymphocytes # (Auto) 1.20 K/uL (1.20-3.40) 01/30/24 Monocytes # (Auto) 0.49 K/uL (0.11-0.59) 01/30/24 Eosinophils # (Auto) 0.38 K/uL (0.00-0.50) 01/30/24 Basophils # (Auto) 0.03 K/uL (0.00-0.20) 01/30/24 Immature Granulocyte # (Auto) 0.03 K/uL (0.01-0.20) 4 Na 135 mmol/L (136-145) L 01/31/24 K 4.2 mmol/L (3.5-5.1) 01/31/24 Cl 101 mmol/L (98-107) 01/31/24 CO2 27 mmol/L (21-32) 01/31/24 Anion Gap 7 (3-11) 01/31/24 BUN 14 mg/dl (6-23) 01/31/24 Creatinine 0.78 mg/dl (0.6-1.2) 01/31/24 Estimated GFR ( Amer) 80.3 ml/min 01/31/24 Estimated GFR (Non-Af Amer) 69.3 ml/min 01/31/24 BUN/Creatinine Ratio 17.9 (10-20) 01/31/24 Glu 166 mg/dl (70-99(Fasting)) H 01/31/24 Ca 9.3 mg/dl (8.6-10.3) 01/31/24 Phosphorus Level 3.6 mg/dl (2.5-4.9) 01/30/24 Total Bilirubin 0.4 mg/dl (0.2-1.0) 01/30/24 AST 18 U/L (13-39) 01/30/24 ALT 10 U/L (7-52) 01/30/24 Alkaline Phosphatase 106 U/L (34-104) H 01/30/24 TP 7.3 gm/dl (6.0-8.3) 01/30/24 Albumin 4.3 gm/dl (3.4-5.0) 01/30/24 Globulin 3.0 gm/dl (2.5-4.0) 01/30/24 Albumin/Globulin Ratio 1.4 (0.9-2) 01/30/24 Mg 2.0 mg/dl (1.7-2.4) 01/30/24 20:18 Calcium Level 9.3 mg/dl (8.6-10.3) 01/31/24 05:37 Prothromb Time International Ratio 1.0 (0.9-1.1) 01/30/24 21:4 3 Venous Blood pH 7.34 (7.36-7.41) L 01/30/24 20:18 Venous Blood Partial Pressure CO2 57 mmHg (38-50) H 01/30/24 20 :18 Venous Blood Partial Pressure O2 25 mmHg 01/30/24 20:18 Venous Blood HCO3 31 mmol/L 01/30/24 20:18 Venous Blood Base Excess 3.5 mEq/L 01/30/24 20:18 Venous Blood Oxygen Saturation < 60.0 % 01/30/24 20:18 Diagnostic Findings (Past 24 Hours) Chest X-Ray 01/30/24 20:08 XR chest 1V portable HISTORY: 83 years-old Female Dyspnea acute shortness of breath COMPARISON: Chest CT 11/07/2023 TECHNIQUE: AP view of the chest FINDINGS: Cardiac silhouette is enlarged. Pulmonary vascular congestion. No pneumothorax. Calcified mediastinal and hilar lymph nodes with irregular mixed interstitial and alveolar opacities redemonstrated. Superior elevation of the rose. Small pleural effusions. Bones appear grossly intact. Surgical clip projects over the left chest. IMPRESSION: 1. Cardiomegaly with suggestion mild pulmonary edema and small pleural effusions. 2. 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 ACT 112: Negative or not required by law. The above report was generated using voice recognition software. It may contain grammatical, syntax or spelling errors. Electronically signed by: Frederic Neville M.D. 01/31/2024 7:09 AM I & O Totals 24 Hours 01/30/24 01/31/24 02/01/24 06:59 06:59 06:59 Intake Total 120 / 120 Balance 120 / 120 Cumulative 01/30/24 19:51 thru 01/31/24 06:10 Intake Total 120 Balance 120 RT Ventilator Mngmt (Last Documented) Ventilator Ordered Settings Respiratory Rate 20 01/31/24 08:16 Ventilator - PT Measurements Respiratory Rate 20 PG Care Time/CCT Total # of Minutes Spent Total Time Spent with Patient: Total time spent is greater than 50% in coordination of care (as documented) at patient's floor/unit and/or counseling patient: Coding Level of Care Code 15019 INT INP/OBS CARE 3/75MIN Diagnoses ILD (interstitial lung disease) J84.9 Pneumoconiosis J64 Hemoptysis R04.2
[2024-01-31] MEDS: COLESTIPOL HCL 1 GM TAB PO SCH (10:21)
[2024-01-31] MEDS: FUROSEMIDE INJ 20 MG/2 ML VIAL IV ONE (10:21)
--- NOTE | 2024-01-31 11:05 | Hospitalist Progress Note ---
Date of Service January 31, 2024 Assessment & Plan (1) PNA (pneumonia): Plan: COPD exacerbation due to pneumonia 83yo female with history of ILD likely silicosis presenting with 2 days of progressive SOB and moist cough. Possible PNA ?CHF -Admit to medical with telemetry -Check Procalcitonin and BNP -Continue supplemental O2 -Azithromycin + Cefepime -Flutter valve -Mucinex 1200mg po BID -Duonebs and Albuterol PRN -Pulmonary consultation appreciated -Patient no longer coughing on 01/30 will continue to monitor. Continue antibiotics as above (2) Hypoxia: Plan: Likely secondary to pneumonia -Continue supplemental O2 -Nebs, Antibiotics and pulmonary toilet as above (3) Pneumoconiosis: Plan: Noted - patient likely with silicosis. She follows with Pulmonary -Pulmonary consultation appreciated for hypoxia and hemoptysis Plan GERD -Continue Protonix 40mg po BID Hypertension -Continue Losartan 100mg po qHS Hypothyroid -Continue Synthyroid Atrial Fibrillation -Hold Apixaban with reported hemoptysis- patient is written for 5mg po BID, states that she takes it daily Admission and Anticipated Discharge Date Admission Date: January 30, 2024 Subjective 83 yo female reports breathing better today. Patient denies any cough. Review of Systems Review of Systems: All systems reviewed & are unremarkable except as noted in HPI & below Physical Exam Physical Exam: General: patient resting comfortably, NAD, non-toxic in appearance, AA&O x 4 Skin: warm, dry, intact, no rashes or lesions HEENT: NC/AT, no LAD, no thyromegaly, no JVD Heart: +S1/S2, irregularly irregular, 3/6 DOMENICA at right 2nd ICS Lungs: equal air entry bilaterally, diffuse rhonchi R>L, scattered end- expiratory wheezing Abd: +BS, soft, NT/ND, no masses/organomegaly/ascites Ext: warm, 2+ pulses in UE/LE bilaterally, no clubbing/cyanosis or edema Neuro: nonfocal, patient AA&O x 4 Results & Data Results & Data Vital Signs (Past 12 Hours) Vital Signs Temp Pulse Pulse Resp BP Pulse Ox O2 Del Method 01/31/24 10:51 87 16 95 Nasal Cannula 01/31/24 10:41 Nasal Cannula 01/31/24 08:16 36.5 C 73 20 131/76 94 Room Air 01/31/24 07:17 63 15 98 Nasal Cannula 01/31/24 07:02 79 01/31/24 02:21 36.5 C 81 18 154/75 H 96 Nasal Cannula 01/31/24 01:07 Nasal Cannula 01/31/24 01:07 36.8 C 20 92 Nasal Cannula 01/31/24 00:38 86 O2 Flow Rate 01/31/24 10:51 4 01/31/24 10:41 4.5 01/31/24 08:16 01/31/24 07:17 4 01/31/24 07:02 01/31/24 02:21 4 01/31/24 01:07 4 01/31/24 01:07 4 01/31/24 00:38 PG Care Time/CCT Total # of Minutes Spent Total Time Spent with Patient: Total time spent is greater than 50% in coordination of care (as documented) at patient's floor/unit and/or counseling patient: Coding Level of Care Code 09927 SUB INP/OBS CARE 2/35MIN Diagnoses PNA (pneumonia) J18.9 Hypoxia R09.02 Pneumoconiosis J64
--- NOTE | 2024-01-31 11:27 | XCELERA ---
[id number]
[2024-01-31] MEDS ORDERED: LEVALBUTEROL 1.25 MG/3 ML NEB NEB PRN (18:05)
[2024-01-31] MEDS: METOPROLOL TARTRATE 1 MG/ML VIAL IV STA (18:26)
[2024-01-31] MEDS: amLODIPine BESYLATE 5 MG TAB PO SCH (20:30)
[2024-01-31] MEDS: LOSARTAN POTASSIUM 50 MG TAB PO SCH (20:31)
[2024-01-31] MEDS: GABAPENTIN 600 MG TAB PO SCH (20:31)
[2024-01-31] MEDS: AZITHROMYCIN 250 MG in DEXTROSE 5% 250 ML IV SCH (20:43)
--- NOTE | 2024-02-01 02:25 | Communication Note ---
Date of Service: February 01, 2024 Notified by nursing that patient has had ongoing tachycardia with rates of 130s- 140s, upon chart review this was noted since 6pm. Per chart review, 5mg lopressor was ordered by daytime hospitalist at approximately 6pm. Patient has been in atrial fibrillation since the tachycardia began, has a history of episodes like this in the past. 500mL bolus of NSS ordered and 1g mag sulfate. After receiving these orders, HR remained at 120s-140s. 2.5mg IV lopressor was ordered, HR afterwards at 134 but BP dipped slightly to 85/61. Nursing reports that patient remains asymptomatic, additonal 500mL bolus of NSS ordered. If tachycardia remains throughout morning, could consider digoxin.
[2024-02-01] MEDS: SODIUM CHLORIDE 0.9% 500 ML IV ONE ×2 (02:35→05:54)
[2024-02-01] MEDS: MAGNESIUM SULFATE / D5W 1 GM/100 ML BAG IV ONE (02:36)
[2024-02-01] MEDS: SODIUM CHLORIDE 0.9% 1,000 ML IV SCH (05:17)
[2024-02-01] MEDS: METOPROLOL TARTRATE 1 MG/ML VIAL IV STA (05:20)
--- NOTE | 2024-02-01 09:07 | Pulmonology Progress Note ---
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 She is on antibiotics for presumed infectious etiologies but is now had A-fib with RVR. Her anticoagulation continues to be held. Recommendations: 1. Hemoptysis: Currently resolved. Suspect either related to coughing, or potentially a bronchitic complaint. Discussed with cardiology. As she has been free of any hemoptysis for the last 36 hours, okay to restart anticoagulation in the form of heparin as they are anticipating an attempt at chemical cardioversion. If hemoptysis should recur, holding anticoagulation would be reasonable. 2. Exacerbation of bronchiectasis/ILD. Cannot rule out infectious component although procalcitonin was negative. Respiratory cultures still not yet obtained as the patient is not expectorating significant phlegm. Can de- escalate antimicrobial therapy in the setting of a normal procalcitonin, normal white blood cell count, and afebrile status. Placed her on oral Augmentin for 5 days. Will discontinue azithromycin given potential QT issues associated with amiodarone 3. Hypoxemic respiratory failure: Secondary to #1 and #2. Continue to wean oxygen as tolerated. She is below her baseline requirement currently. 4. ILD, no indication for steroids currently. Continue bronchodilators. 5. GERD: Per primary service Anticipate relatively short hospitalization and outpatient follow-up with Dr. Cali. Will continue to follow with you. Feel free to contact us with questions or concerns Admission and Anticipated Discharge Date Admission Date: January 30, 2024 Subjective Patient seen and examined. EMR reviewed. The patient states she is doing okay this morning. She is eating breakfast. Her respiratory status is stable and she is down below her baseline oxygen requirement of 5 L/min. She is currently requiring only 3 L/min. She is occasionally coughing and felt some rattling in her chest last evening but has not had any recurrence of the hemoptysis. Unfortunately she did develop A-fib with a rapid ventricular response last evening and was symptomatic with low blood pressure. Cardiology's been consulted today Review of Systems 2 Review of Systems: All systems reviewed & are unremarkable except as noted in Subjective Physical Exam 2 Constitutional: WD/WN, vitals as above Neck: trachea midline, no thyromegaly Respiratory: no respiratory distress, no labored breathing, no cough and not tachypneic Auscultation: + crackles and + rhonchi; no wheezes Cardiovascular: Rate/Rhythm: + tachycardic and + irregularly irregular H eart Sounds: normal S1 and normal S2; no murmur Extremities: no edema Gastrointestinal (Abdomen): normal bowel sounds, soft, nontender, no hepatosplenomegaly Musculoskeletal: Extremities: extremities normal to inspection Skin: no rashes, warm and dry Lymphatic: no cervical lymphadenopathy Results & Data Results & Data Vital Signs (Past 12 Hours) Vital Signs Temp Pulse Pulse Resp BP BP Pulse Ox 02/01/24 07:47 36.4 C L 133 H 17 109/74 94 02/01/24 05:45 134 H 85/61 L 02/01/24 03:59 36.5 C 141 H 18 99/67 L 97 01/31/24 23:44 36.8 C 137 H 18 100/64 95 01/31/24 21:46 137 H O2 Del Method O2 Flow Rate 02/01/24 07:47 Nasal Cannula 3.5 02/01/24 05:45 02/01/24 03:59 Nasal Cannula 4.5 01/31/24 23:44 Nasal Cannula 4.5 01/31/24 21:46 Laboratory Results 01/31/24 05:37 01/31/24 05:37 Diagnostic Findings No new imaging PG Care Time/CCT Total # of Minutes Spent Total Time Spent with Patient: Total time spent is greater than 50% in coordination of care (as documented) at patient's floor/unit and/or counseling patient: Coding Level of Care Code 15202 SUB INP/OBS CARE 2/35MIN Diagnoses ILD (interstitial lung disease) J84.9 Pneumoconiosis J64 Hemoptysis R04.2
--- NOTE | 2024-02-01 09:10 | Cardiology Consultation ---
Date of Consultation February 01, 2024 Assessment & Plan (1) Paroxysmal atrial fibrillation: (2) Aortic stenosis: (3) Hypotension: (4) HTN (hypertension): (5) CAD (coronary artery disease): (6) Hemoptysis: Plan ASSESSMENT/PLAN: 1. Paroxysmal atrial fibrillation: Developed A-fib with RVR on 01/31/2024 in the evening. Symptomatic and developed issues with hypotension while in A-fib, likely due to also concomitant moderate to severe aortic stenosis. Recommend rhythm control. She ate breakfast this morning and therefore will not pursue cardioversion as her blood pressure is now low normal. Start amiodarone IV. Start heparin drip. Discussed with Dr. Quintero of pulmonary who is agreeable for heparin drip and then Eliquis tomorrow if no further hemoptysis. Discussed potential long-term/short-term issues with amiodarone with patient. Pulmonary would like to avoid long-term amiodarone given her lung issues. Will use amiodarone to help convert to sinus rhythm and then can attempt beta-bobo or other antiarrhythmic therapy in the future if needed. Monitor TSH (ordered today). Repeat BMP/electrolytes this morning. Monitor CBC while resuming anticoagulation therapy. 2. Aortic stenosis: Moderate to severe. Murmur not well-characterized as she is tachycardic and irregular. Close outpatient monitoring recommended. Less likely to tolerate A-fib with RVR given aortic stenosis. 3. Hypotension: Likely due to A-fib with RVR, especially in the setting of moderate to severe aortic stenosis. Plan as above. 4. Hypertension: History of hypertension and was hypertensive earlier this hospital stay until A-fib developed when she became intermittently hypotensive. Plan as above. Would recommend/consider beta-bobo once blood pressure stabilizes. 5. CAD: Details not well-known but according to family practice records, nonobstructive CAD. Given that she is anticoagulated generally, aspirin therapy is not necessary as she has no history of PCI. Can discontinue aspirin. Recommend statin therapy. 6. Hemoptysis: Has resolved. Cautiously starting heparin drip and attempts to cardiovert and reduce stroke risk. Will give lower bolus than usual to monitor closely for bleeding. Her A-fib is less than 24 hours since onset. 7. Disposition: Cardiology will continue to follow. She has asked if she can follow-up with [facility] upon discharge. We would be happy to help manage her cardiac issues in the outpatient setting. Patient care discussed with Dr. Quintero of pulmonary. Patient care communicated with Dr. Corrales of the primary hospitalist service. Thank you for allowing me to participate in the care of your patient. Please call for any other questions or concerns. Sincerely, Goran House M.D. History of Present Illness Reason for Consultation: afib Requesting Physician: Jonas Corrales Attending Physician: Jonas Corrales History of Present Illness Mrs. Gallo is a very pleasant 84-year-old female with a history significant for aortic stenosis, paroxysmal atrial fibrillation, CAD (reportedly nonobstructive), hypertension, dyslipidemia, Crohn's, celiac, silicosis, prediabetes, interstitial lung disease, and sleep apnea. She was admitted on 01/30/2024 after presenting with shortness of breath and hemoptysis. She follows with Dr. Pagan for her cardiology care in [place]. According to records, she had a myocardial infarction in the past but has reported nonobstructive CAD. Details of this are not known at the time of this note. She also has aortic stenosis and paroxysmal atrial fibrillation, undergoing cardioversion in 2023. She is symptomatic with A-fib, reporting jaw pain and headache. Watchman device was recommended by her hybrid powertrain development engineer, Dr. Pagan, but she declined. She states that when she gets atrial fibrillation, she sometimes uses her 's "A-fib pill." She is not sure what this medication is but it typically helps resolve her A-fib symptoms. A-fib typically is short-lived, lasting only a few hours and sometimes spontaneously resolves. She does not recall being on a beta-bobo, calcium channel bobo, digoxin, or antiarrhythmic therapy but recalls being referred for a Watchman device, which she has declined. She typically takes anticoagulation therapy. She was in sinus rhythm on presentation and went into A-fib on 01/31/2024 at approximately 1745 when she developed A-fib with RVR. She has had intermittent symptoms since being in A-fib of her jaw pain and headache. She also developed hypotension with her A-fib. Her blood pressure had been hypertensive or normotensive but with A-fib, has had blood pressures systolic 80s to 90s and otherwise low 100s. Her heart rate has been 130s to 150s while laying in bed while in [facility]. She typically uses 5 L of supplemental oxygen via nasal cannula. Her hemoptysis has resolved. 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 She denies chest pain, edema, syncope, near syncope, palpitations. She denies a history of stroke, TIA, or CHF. She has chronic dyspnea on exertion which she believes is stable. She denies orthopnea. Review of systems: As above. Family history: No known premature CAD. Social history: She quit smoking in 1986. Denies alcohol or drug abuse. She lives at home with her . She has 3 children. She was unaccompanied. Allergies Allergy/AdvReac Type Severity Reaction Status Date / Time ondansetron Allergy Unknown CAN'T Verified 11/13/23 12:44 BREATHE risedronate sodium Allergy Unknown GI UPSET, Verified 11/13/23 12:44 JAW NUMB rosuvastatin Allergy Unknown SHOULDER Verified 11/13/23 12:44 PAIN simvastatin Allergy Unknown MUSCLE Verified 11/13/23 12:44 SPASMS blue dye AdvReac Unknown VOMITING Verified 11/13/23 12:44 oseltamivir AdvReac Unknown VOMITING Verified 11/13/23 12:44 Home Medications Medication Instructions Recorded Confirmed Type amlodipine 5 mg tablet 5 mg PO HS 12/28/21 01/30/24 History ascorbic acid (vitamin C) 1,000 mg 1 g PO QDL 12/28/21 01/30/24 History tablet (Vitamin C) aspirin 81 mg tablet,delayed 81 mg PO DAILY 12/28/21 01/30/24 History release cholecalciferol (vitamin D3) 25 5,000 unit PO QDL 12/28/21 01/30/24 History mcg (1,000 unit) capsule (Vitamin D3) diphenoxylate-atropine 2.5 1 tab PO UD PRN Diarrhea 12/28/21 01/30/24 History mg-0.025 mg tablet (Lomotil) gabapentin 600 mg tablet 600 mg PO HS 12/28/21 01/30/24 History levothyroxine 75 mcg capsule 75 mcg PO QAM 12/28/21 01/30/24 History losartan 100 mg tablet 100 mg PO HS 12/28/21 01/30/24 History meloxicam 15 mg tablet 15 mg PO QAM 12/28/21 11/13/23 History multivitamin 1 cap PO QDL 12/28/21 01/30/24 History omeprazole 20 mg tablet,delayed 20 mg PO BID 12/28/21 01/30/24 History release zinc 50 mg capsule 50 mg PO QDL 12/28/21 01/30/24 History apixaban 5 mg tablet (Eliquis) 5 mg PO BID 11/13/23 01/30/24 History colestipol 1 gram tablet 1 g PO DAILY Diarrhea 11/13/23 01/30/24 History Problem List (Updated 02/01/24 @ 09:24 by Georgi House MD) CAD (coronary artery disease) Hypotension Aortic stenosis Paroxysmal atrial fibrillation Hemoptysis PNA (pneumonia) (Acute) Hypoxia (Acute) Pneumoconiosis Ex-smoker SOB (shortness of breath) on exertion AND C/P RANDOM AND WITH ACTIVITY (NO CHANGES FROM BASELINE) FOLLOWS PULMONOLOGY DR ANN/KAN ILD (interstitial lung disease) (Acute) COPD (chronic obstructive pulmonary disease) (Acute) Encounter for pre-operative examination Lumbar stenosis with neurogenic claudication (Acute 03/15/14) Patient History Medical History Oxygen dependent O2 4 L HS Sleep apnea DEVICE RECOMMENDED AND DECLINED Legally blind Acoustic neuroma HX GAMMA KNIFE RADIATION Lung cancer DX 2 YR AGO, PT DECLINES TREATMENTS Fibromyalgia History of colon polyps BENIGN Ulcerative colitis Inflammatory bowel disease Celiac disease Back problem Hypothyroid Neuropathy FEET Diarrhea CHRONIC Acid reflux HTN (hypertension) Surgical History History of cardiac cath approx 6 years ago. [facility] [place]. No stents. History of left knee replacement History of foot surgery LEFT History of total right hip replacement History of lung biopsy History of carpal tunnel surgery of right wrist History of carpal tunnel surgery of left wrist History of hysterectomy History of cholecystectomy History of back surgery TOTAL OF 3 , 1 WAS A FUSION History of lumbar fusion Family History Other Family history of diabetes mellitus Social History Smoking Status: Former smoker Second Hand Exposure: No; Do You Dip or Chew Tobacco: No; Hx Alcohol Use: No Hx Substance Use: No Preferred Language: Italian Communication Ability: Effective Communication Ability Comment: LEGALLY BLIND/USES MAGNIFYING GLASS Black Leather Buffer Required: No Beliefs That Will Affect Care: None Current Living Situation: Spouse Feels Safe at Home: Yes Assistive Devices: Cane, Oxygen - at Night and Walker Physical Exam Physical Exam: Gen.: No acute distress. Alert. HEENT: Anicteric sclera. Neck: No JVD. No bruits. Normal carotid upstrokes bilaterally. Cardiac: Irregularly irregular. Tachycardic. Normal S1-S2. 1/6 systolic murmur. Pulmonary: Bilateral crackles and rhonchi. Abdomen: Soft, nontender, nondistended, with normoactive bowel sounds. No bruits noted. Extremities: 2+ radial pulses bilaterally. 2+ posterior tibialis pulses bilaterally. No edema or cyanosis. Psychiatric: Affect appears appropriate. Results & Data Vital Signs (Past 12 Hours) Vital Signs Temp Pulse Pulse Resp BP BP Pulse Ox 02/01/24 07:47 36.4 C L 133 H 17 109/74 94 02/01/24 05:45 134 H 85/61 L 02/01/24 03:59 36.5 C 141 H 18 99/67 L 97 01/31/24 23:44 36.8 C 137 H 18 100/64 95 01/31/24 21:46 137 H O2 Del Method O2 Flow Rate 02/01/24 07:47 Nasal Cannula 3.5 02/01/24 05:45 02/01/24 03:59 Nasal Cannula 4.5 01/31/24 23:44 Nasal Cannula 4.5 01/31/24 21:46 Laboratory Results Laboratory Results - last 48 hr 01/30/24 01/30/24 01/31/24 20:18 21:43 05:37 WBC 7.63 5.12 RBC 5.07 4.78 Hgb 14.6 13.9 Hct 45.0 41.0 MCV 88.8 85.8 MCH 28.8 29.1 MCHC 32.4 33.9 RDW Std Deviation 44.6 42.3 RDW Coeff of Alvina 13.8 13.4 Plt Count 271 251 MPV 8.9 L 9.1 L Immature Gran % (Auto) 0.4 Neut % (Auto) 72.1 Lymph % (Auto) 15.7 Humphreys % (Auto) 6.4 Eos % (Auto) 5.0 Baso % (Auto) 0.4 Neut # (Auto) 5.50 Lymph # (Auto) 1.20 Humphreys # (Auto) 0.49 Eos # (Auto) 0.38 Baso # (Auto) 0.03 Immature Gran # (Auto) 0.03 PT Cancelled 10.5 INR Cancelled 1.0 APTT Cancelled 31 PTT Ratio Cancelled 1.2 VBG pH 7.34 L VBG pCO2 57 H VBG pO2 25 VBG HCO3 31 VBG O2 Saturation < 60.0 VBG Base Excess 3.5 Sodium 133 L 135 L Potassium TNP 4.0 4.2 Chloride 98 101 Carbon Dioxide 29 27 Anion Gap 6 7 BUN 16 14 Creatinine 1.08 0.78 D Est Cr Clr Drug Dosing Not Reportable 56.0 Est GFR ( Amer) 54.2 80.3 Est GFR (Non-Af Amer) 46.8 69.3 BUN/Creatinine Ratio 14.8 17.9 Glucose 120 H 166 H Calcium 9.5 9.3 Phosphorus Cancelled 3.6 Magnesium 2.0 Total Bilirubin 0.4 AST TNP 18 ALT 10 Alkaline Phosphatase 106 H Troponin I High Sens 19.7 H 23.8 H B-Natriuretic Peptide 225 H Total Protein 7.3 Albumin 4.3 Globulin 3.0 Albumin/Globulin Ratio 1.4 Procalcitonin < 0.02 Urine Color Yellow Urine Appearance Clear Urine pH 7.0 Ur Specific [place] 1.009 Urine Protein Negative Urine Glucose (UA) Negative Urine Ketones Negative Urine Blood Negative Urine Nitrite Negative Urine Bilirubin Negative Urine Urobilinogen Negative Ur Leukocyte Esterase Trace H Urine WBC (Auto) 0-5 Urine RBC (Auto) 0-2 U Hyaline Cast (Auto) 0-2 U Epithel Cells (Auto) 0-2 Urine Bacteria (Auto) None Seen Adenovirus (PCR) Not Detected B. pertussis DNA (PCR) Not Detected B.parapertussis DNA PCR Not Detected C. pneumoniae DNA (PCR) Not Detected Coronavirus OC43 (PCR) Not Detected Coronavirus HKU1 (PCR) Not Detected Coronavirus 229E (PCR) Not Detected SARS-CoV-2 (PCR) Not Detected Coronavirus NL63 (PCR) Not Detected Human Metapneumovir PCR Not Detected Influenza Type A (PCR) Not Detected Influenza Type B (PCR) Not Detected M. pneumoniae (PCR) Not Detected Parainfluenza 1 (PCR) Not Detected Parainfluenza 2 (PCR) Not Detected Parainfluenza 3 (PCR) Not Detected Parainfluenza 4 (PCR) Not Detected RSV (PCR) Not Detected Entero/Rhino (PCR) Not Detected Diagnostic Findings Telemetry personally reviewed: Atrial fibrillation with rapid ventricular response. Was sinus rhythm until 01/31/2024 at 1745. Labs reviewed from 01/31/2024 and notable for normal blood counts, stable renal function, normal potassium. Labs from 01/30/2024 demonstrated normal transaminase levels and normal magnesium level. 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 Small pleural effusions. Mixed interstitial and alveolar opacities and pulmonary vascular congestion per radiology. Pulmonary progress note reviewed. ECG personally reviewed 02/01/2024 at 7:44 AM: A-fib RVR 138 bpm. Poor R wave progression. ECG 01/30/2024 2003 reviewed: Sinus rhythm 84 bpm. Poor R wave progression. Echo report reviewed 01/31/2024: Normal LV size, wall motion, systolic function. EF 60 to 65%. Mild left atrial dilation. Moderate to severe aortic stenosis. History and physical report reviewed. PFT report reviewed from 11/19/2023: Moderate obstructive lung dysfunction. Outside family practice report from 10/30/2023 reviewed. Medications Administered Current Inpatient Medications Acetaminophen (Acetaminophen 325 Mg Tab) 650 mg PO Q4H PRN PRN Reason: Pain or Fever Stop: 03/01/24 01:26 Amlodipine Besylate (Amlodipine Besylate 5 Mg Tab) 5 mg PO [facility] Stop: 03/01/24 20:59 Last Admin: 01/31/24 20:30 Dose: 5 mg Amoxicillin/Clavulanate Potassium (Amoxicillin/Clavulanate 875 Mg Tab) 1 tab PO BIDM [facility]; Protocol Stop: 02/08/24 16:59 Apixaban (Apixaban 5 Mg Tablet) 5 mg PO BID [facility] Stop: 03/01/24 08:59 Aspirin (Aspirin 81 Mg Ectab) 81 mg PO DAILY [facility] Stop: 03/01/24 08:59 Last Admin: 01/31/24 08:21 Dose: 81 mg Colestipol HCl (Colestipol Hcl 1 Gm Tab) 1 gm PO DAILY@1000 [facility] Stop: 03/01/24 09:59 Last Admin: 01/31/24 10:21 Dose: 1 gm Gabapentin (Gabapentin 600 Mg Tab) 600 mg PO HS [facility] Stop: 03/01/24 20:59 Last Admin: 01/31/24 20:31 Dose: 600 mg Guaifenesin (Guaifenesin 600 Mg Tabcr) 1,200 mg PO Q12 [facility] Stop: 03/01/24 08:59 Last Admin: 01/31/24 20:32 Dose: 1,200 mg Sodium Chloride (Nss) 1,000 mls @ 100 mls/hr IV .Q10H [facility] Stop: 02/01/24 15:14 Last Admin: 02/01/24 05:17 Dose: 100 mls/hr Levalbuterol HCl (Levalbuterol 1.25 Mg/3 Ml Neb) 1.25 mg NEB Q6R PRN PRN Reason: Shortness Of Breath Or Wheezin Stop: 03/01/24 18:04 Levothyroxine Sodium (Levothyroxine Sodium 75 Mcg Tablet) 75 mcg PO DAILYBB [facility] Stop: 03/01/24 06:29 Last Admin: 02/01/24 05:22 Dose: 75 mcg Losartan Potassium (Losartan Potassium 50 Mg Tab) 100 mg PO HS [facility] Stop: 03/01/24 20:59 Last Admin: 01/31/24 20:31 Dose: 100 mg Pantoprazole Sodium (Pantoprazole 40 Mg Tab) 40 mg PO BID [facility] Stop: 03/01/24 08:59 Last Admin: 01/31/24 20:33 Dose: 40 mg PG Care Time/CCT Total # of Minutes Spent Total Time Spent with Patient: Total time spent is greater than 50% in coordination of care (as documented) at patient's floor/unit and/or counseling patient: Coding Level of Care Code 96492 INT INP/OBS CARE 3/75MIN Diagnoses Paroxysmal atrial fibrillation I48.0 Aortic stenosis I35.0 Hypotension I95.9 HTN (hypertension) I10 CAD (coronary artery disease) I25.10 Hemoptysis R04.2
[2024-02-01] MEDS ORDERED: AMIODARONE IV BOLUS & DRIP IV STA ×2 (09:11→10:07)
[2024-02-01] MEDS ORDERED: AMIODARONE / D5W 150 MG/100 ML BAG IV STA (09:11)
[2024-02-01] MEDS ORDERED: STAT IV Infusion **Titration per Protocol STA ×2 (09:11→10:07)
[2024-02-01] MEDS ORDERED: 0.2 MICRON FILTER SET 1 EACH IV STA ×2 (09:11→10:07)
[2024-02-01] MEDS ORDERED: Heparin IV Adult Wt-Based Low-Dose w/ INITIAL Bolus Protocol IV SCH (09:19)
[2024-02-01] MEDS ORDERED: HEPARIN SOD (PORCINE) 1000 UNIT/ML IV ONE (09:27)
[2024-02-01 09:55] LABS: BUN Creatinine Ratio 27.4 (10-20); Calcium 8.8 mg/dl (8.6-10.3); Creatinine Clr Calc Pharmacy 50.8 ml/min; Est GFR (African American) 72.9 ml/min; Est GFR (Non-African American) 62.9 ml/min; Potassium 4.2 mmol/L (3.5-5.1)
[2024-02-01] MEDS ORDERED: AMIODARONE / D5W 360 MG/200 ML BAG IV ONE (10:07)
[2024-02-01] MEDS ORDERED: HEPARIN SODIUM/DEXTROSE 25,000 UNITS/500 ML BAG IV SCH (10:07)
[2024-02-01 10:09] LABS: Thyroid Stimulating Hormone 1.689 uIu/ml (0.300-4.500)
[2024-02-01] MEDS: AMIODARONE / D5W 360 MG/200 ML BAG IV ONE (10:39)
[2024-02-01] MEDS: AMIODARONE / D5W 150 MG/100 ML BAG IV STA (10:53)
[2024-02-01] MEDS: HEPARIN SOD (PORCINE) 1000 UNIT/ML IV ONE (10:55)
[2024-02-01] MEDS: Heparin IV Adult Wt-Based Standard *NO* INITIAL Bolus Protocol IV SCH (10:55)
[2024-02-01] MEDS: HEPARIN SODIUM/DEXTROSE 25,000 UNITS/500 ML BAG IV SCH (10:57)
[2024-02-01] MEDS: METOPROLOL TARTRATE 25 MG TAB PO SCH (11:27)
[2024-02-01] MEDS: PROCHLORPERAZINE 5 MG in SYRINGE 4 ML IV PRN (14:32)
[2024-02-01] MEDS ORDERED: AMIODARONE / D5W 360 MG/200 ML BAG IV SCH (15:15)
[2024-02-01] MEDS: ACETAMINOPHEN 325 MG TAB PO PRN (15:32)
[2024-02-01] MEDS: AMIODARONE / D5W 360 MG/200 ML BAG IV SCH (16:32)
--- NOTE | 2024-02-01 17:50 | XRay Report ---
XR chest 1V portable HISTORY: 84 years-old Female sob acute shortness of breath COMPARISON: 01/30/2024 TECHNIQUE: AP view the chest FINDINGS: Cardiac silhouette is enlarged. Pulmonary vascular congestion. No pneumothorax. Calcified mediastinal and hilar lymph nodes with irregular mixed interstitial and alveolar opacities redemonstrated. Super ior elevation of the rose. Small pleural effusions. Bones appear grossly intact. Surgical clip projec ts over the left chest. IMPRESSION: 1. Cardiomegaly with mildly improved pulmonary edema. 2. Small pleural effusions. 3. Pulmonary fibrosis with prior granulomatous disease. ACT 112: Negative or not required by law. The above report was generated using voice recognition software. It may contain grammatical, syntax o r spelling errors. Electronically signed by: Frederic Neville M.D. 02/01/2024 5:48 PM
[2024-02-01 18:03] LABS: ANTI-Xa, UFH(UnfractionatedHep 0.45 IU/ml (0.3-0.7)
[2024-02-01] MEDS: FUROSEMIDE INJ 20 MG/2 ML VIAL IV ONE ×2 (18:23→20:46)
[2024-02-01] MEDS: AMOXICILLIN/CLAVULANATE 875 MG TAB PO SCH (18:23)
[2024-02-02 06:18] LABS: ANTI-Xa, UFH(UnfractionatedHep 0.43 IU/ml (0.3-0.7)
--- NOTE | 2024-02-02 07:31 | Hospitalist Progress Note ---
Date of Service February 01, 2024 Assessment & Plan (1) PNA (pneumonia): Plan: COPD exacerbation due to pneumonia 83yo female with history of ILD likely silicosis presenting with 2 days of progressive SOB and moist cough. Possible PNA ?CHF -Admit to medical with telemetry -Check Procalcitonin and BNP -Continue supplemental O2 -Azithromycin + Cefepime -Flutter valve -Mucinex 1200mg po BID -Duonebs and Albuterol PRN -Pulmonary consultation appreciated -Patient no longer coughing on 01/30 will continue to monitor. Continue antibiotics as above diastolic CHF exacerbation placed on lasix 40 mg in the PM. will monitor. (2) Hypoxia: Plan: Likely secondary to pneumonia -Continue supplemental O2 -Nebs, Antibiotics and pulmonary toilet as above (3) Pneumoconiosis: Plan: Noted - patient likely with silicosis. She follows with Pulmonary -Pulmonary consultation appreciated for hypoxia and hemoptysis Plan paroxysmal atrial fibrillation Heart rate remains elevated. placed on amiodarone GERD -Continue Protonix 40mg po BID Hypertension -Continue Losartan 100mg po qHS Hypothyroid -Continue Synthyroid Atrial Fibrillation -Hold Apixaban with reported hemoptysis- patient is written for 5mg po BID, states that she takes it daily Admission and Anticipated Discharge Date Admission Date: January 30, 2024 Subjective Patient reports feeling SOB and anxious. Review of Systems Review of Systems: All systems reviewed & are unremarkable except as noted in HPI & below Physical Exam Physical Exam: General: patient resting comfortably, NAD, non-toxic in appearance, AA&O x 4 Skin: warm, dry, intact, no rashes or lesions HEENT: NC/AT, no LAD, no thyromegaly, no JVD Heart: +S1/S2, irregularly irregular, 3/6 DOMENICA at right 2nd ICS Lungs: equal air entry bilaterally, diffuse rhonchi R>L, scattered end- expiratory wheezing Abd: +BS, soft, NT/ND, no masses/organomegaly/ascites Ext: warm, 2+ pulses in UE/LE bilaterally, no clubbing/cyanosis or edema Neuro: nonfocal, patient AA&O x 4 Results & Data Results & Data Vital Signs (Past 12 Hours) Vital Signs Temp Pulse Pulse Resp BP Pulse Ox O2 Del Method 02/02/24 07:11 36.4 C L 68 14 134/84 99 Nasal Cannula 02/02/24 06:46 60 02/02/24 03:19 36.6 C 60 18 103/67 94 Nasal Cannula 02/02/24 00:00 140 H 02/01/24 20:00 Nasal Cannula 02/01/24 19:45 36.7 C 134 H 18 125/89 94 Nasal Cannula O2 Flow Rate 02/02/24 07:11 3 02/02/24 06:46 02/02/24 03:19 3.5 02/02/24 00:00 02/01/24 20:00 4 02/01/24 19:45 3 PG Care Time/CCT Total # of Minutes Spent Total Time Spent with Patient: Total time spent is greater than 50% in coordination of care (as documented) at patient's floor/unit and/or counseling patient: Coding Level of Care Code 40304 SUB INP/OBS CARE 3/50MIN Diagnoses PNA (pneumonia) J18.9 Hypoxia R09.02 Pneumoconiosis J64
--- NOTE | 2024-02-02 08:49 | Cardiology Progress Note ---
Date of Service February 02, 2024 Assessment & Plan (1) Paroxysmal atrial fibrillation: (2) Aortic stenosis: (3) Hypotension: (4) HTN (hypertension): (5) CAD (coronary artery disease): (6) Hemoptysis: Plan ASSESSMENT/PLAN: 1. Paroxysmal atrial fibrillation: Developed A-fib with RVR on 01/31/2024 in the evening. Symptomatic and developed issues with hypotension while in A-fib, likely due to also concomitant moderate to severe aortic stenosis. Recommend rhythm control. Converted here with amio IV gtt. Pulmonary prefers not to use amiodarone long-term. Agreeable for dronedarone. Start dronedarone 400 mg twice daily on discharge. Resume Eliquis for stroke risk reduction. Monitor renal function and CBC. 2. Aortic stenosis: Moderate to severe. Close outpatient monitoring. 3. Hypotension: Likely due to A-fib with RVR on 02/01/2024. She received IV fluids by the primary hospitalist service. Now in sinus rhythm. Blood pressure normal. 4. Hypertension: History of hypertension and was hypertensive earlier this hospital stay until A-fib developed when she became intermittently hypotensive on 02/01/2024. Plan as above. 5. CAD: Details not well-known but according to family practice records, nonobstructive CAD. Given that she is anticoagulated generally, aspirin therapy is not necessary as she has no history of PCI. Can discontinue aspirin. Recommend statin therapy. 6. Hemoptysis: Has resolved. Pulmonary okay to resume Eliquis. 7. Hypervolemia: Was hypervolemic yesterday evening after receiving IV fluids earlier in the day and in the setting of A-fib with RVR. Would not characterize this as heart failure but rather iatrogenic hypovolemia, although A-fib with RVR may have also contributed. She appears euvolemic today. Would not recommend scheduled diuretic as an outpatient but rather close follow-up and medications can be adjusted if need be. 8. Disposition: Can be discharged home from a cardiology perspective. She requests follow-up with [facility]. Patient care communicated with Dr. Quintero of pulmonary and also Dr. Corrales of the primary hospitalist service. I will request follow-up in the next 1 to 2 weeks in the outpatient cardiology office. Admission and Anticipated Discharge Date Admission Date: January 30, 2024 Subjective Patient seen this morning. She converted to sinus rhythm at 2:48 AM. She feels much better today. After receiving IV fluids yesterday, she developed shortness of breath. After 20 mg of IV Lasix, her breathing is back to baseline. She denies chest pain, palpitations, syncope, or bleeding. She was alone in her hospital room. Physical Exam Physical Exam: Gen.: No acute distress. Alert. HEENT: Anicteric sclera. Neck: No JVD. No hepatojugular reflux. Cardiac: Regular. Normal heart rate. Normal S1-S2. 2/6 systolic murmur. Pulmonary: Bilateral crackles and rhonchi. Abdomen: Soft, nontender, nondistended, with normoactive bowel sounds. No bruits noted. Extremities: 2+ radial pulses bilaterally. 2+ posterior tibialis pulses bilaterally. No edema or cyanosis. Psychiatric: Affect appears appropriate. Results & Data Vital Signs (Past 12 Hours) Vital Signs Temp Pulse Pulse Resp BP Pulse Ox O2 Del Method 02/02/24 07:11 36.4 C L 68 14 134/84 99 Nasal Cannula 02/02/24 06:46 60 02/02/24 03:19 36.6 C 60 18 103/67 94 Nasal Cannula 02/02/24 00:00 140 H O2 Flow Rate 02/02/24 07:11 3 02/02/24 06:46 02/02/24 03:19 3.5 02/02/24 00:00 Intake & Output 01/31/24 02/01/24 02/02/24 02/03/24 06:59 06:59 06:59 06:59 Intake Total 120 / 120 1852.5 / 1852.5 2230.933 / 2230.933 190.4 / 190.4 Output Total 2900 / 2900 Balance 120 / 120 1852.5 / 1852.5 -669.067 / -669.067 190.4 / 190.4 Weight 166 lb 14.239 oz 165 lb 2.02 oz 162 lb 11.218 oz Laboratory Results Laboratory Results - last 24 hr 02/01/24 02/02/24 16:47 05:39 Heparin Anti-Xa, Unfract 0.45 0.43 Sodium 133 L Potassium 3.8 Chloride 96 L Carbon Dioxide 33 H Anion Gap 4 BUN 26 H Creatinine 0.86 Est Cr Clr Drug Dosing 45.7 Est GFR ( Amer) 70.9 Est GFR (Non-Af Amer) 61.2 BUN/Creatinine Ratio 30.2 H Glucose 113 H Calcium 8.9 Diagnostic Findings Telemetry personally reviewed: Atrial fibrillation converted to sinus rhythm at 2:48 AM with a 3.8-second pause. She has remained in sinus rhythm since then. Labs reviewed and notable for normal potassium, stable renal function. ECG personally reviewed 02/02/2024: Sinus rhythm with PACs 66 bpm. Medications Administered Current Inpatient Medications Acetaminophen (Acetaminophen 325 Mg Tab) 650 mg PO Q4H PRN PRN Reason: Pain or Fever Stop: 03/01/24 01:26 Last Admin: 02/01/24 15:32 Dose: 650 mg Amlodipine Besylate (Amlodipine Besylate 5 Mg Tab) 5 mg PO [facility] Stop: 03/01/24 20:59 Last Admin: 02/01/24 20:46 Dose: 5 mg Amoxicillin/Clavulanate Potassium (Amoxicillin/Clavulanate 875 Mg Tab) 1 tab PO BIDM [facility]; Protocol Stop: 02/08/24 16:59 Last Admin: 02/02/24 08:29 Dose: 1 tab Apixaban (Apixaban 5 Mg Tablet) 5 mg PO BID [facility] Stop: 03/01/24 08:59 Aspirin (Aspirin 81 Mg Ectab) 81 mg PO DAILY [facility] Stop: 03/01/24 08:59 Last Admin: 02/02/24 08:29 Dose: 81 mg Colestipol HCl (Colestipol Hcl 1 Gm Tab) 1 gm PO DAILY@1000 [facility] Stop: 03/01/24 09:59 Last Admin: 02/01/24 10:43 Dose: 1 gm Gabapentin (Gabapentin 600 Mg Tab) 600 mg PO [facility] Stop: 03/01/24 20:59 Last Admin: 02/01/24 20:47 Dose: 600 mg Guaifenesin (Guaifenesin 600 Mg Tabcr) 1,200 mg PO Q12 [facility] Stop: 03/01/24 08:59 Last Admin: 02/02/24 08:30 Dose: 1,200 mg Amiodarone HCl/Dextrose (Nexterone / D5w) 360 mg in 200 mls @ 16.667 mls/hr IV .Q12H [facility] Stop: 03/02/24 15:14 Last Admin: 02/02/24 06:32 Dose: Not Given Heparin Sodium/Dextrose (Heparin Sodium/Dextrose) 25,000 units in 500 mls @ 16 mls/hr IV .Q24H [facility]; Protocol Stop: 03/02/24 09:29 Last Titration: 02/02/24 07:02 Dose: 800 units/hr, 16 mls/hr Prochlorperazine 5 mg/ Syringe 5 mls @ 5 mls/min IV Q6H PRN PRN Reason: Nausea And Vomiting Stop: 03/02/24 13:14 Last Admin: 02/01/24 14:32 Dose: 5 mls/min Levalbuterol HCl (Levalbuterol 1.25 Mg/3 Ml Neb) 1.25 mg NEB Q6R PRN PRN Reason: Shortness Of Breath Or Wheezin Stop: 03/01/24 18:04 Levothyroxine Sodium (Levothyroxine Sodium 75 Mcg Tablet) 75 mcg PO DAILYBB [facility] Stop: 03/01/24 06:29 Last Admin: 02/02/24 06:23 Dose: 75 mcg Losartan Potassium (Losartan Potassium 50 Mg Tab) 100 mg PO HS [facility] Stop: 03/01/24 20:59 Last Admin: 02/01/24 20:48 Dose: 100 mg Pantoprazole Sodium (Pantoprazole 40 Mg Tab) 40 mg PO BID [facility] Stop: 03/01/24 08:59 Last Admin: 02/02/24 08:30 Dose: 40 mg PG Care Time/CCT Total # of Minutes Spent Total Time Spent with Patient: Total time spent is greater than 50% in coordination of care (as documented) at patient's floor/unit and/or counseling patient: Coding Level of Care Code 17162 SUB INP/OBS CARE 3/50MIN Diagnoses Paroxysmal atrial fibrillation I48.0 Aortic stenosis I35.0 Hypotension I95.9 HTN (hypertension) I10 CAD (coronary artery disease) I25.10 Hemoptysis R04.2
[2024-02-02 09:43] LABS: BUN Creatinine Ratio 30.2 (10-20); Calcium 8.9 mg/dl (8.6-10.3); Creatinine Clr Calc Pharmacy 45.7 ml/min; Est GFR (African American) 70.9 ml/min; Est GFR (Non-African American) 61.2 ml/min; Potassium 3.8 mmol/L (3.5-5.1)
--- NOTE | 2024-02-02 09:50 | Pulmonology Progress Note ---
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 She has done well clinically and is on oral antibiotics. Her oxygen has been weaned. She is converted and is now on a heparin infusion with no recurrence of her hemoptysis Recommendations: 1. Hemoptysis: Currently resolved. Tolerating heparin infusion. Okay to restart oral anticoagulants at this point in time. 2. Exacerbation of bronchiectasis/ILD. Cannot rule out infectious component although procalcitonin was negative. Respiratory cultures still not yet obtained as the patient is not expectorating significant phlegm. No indication for bronchoscopy. Complete Augmentin for 5 days. 3. Hypoxemic respiratory failure: Secondary to #1 and #2. She is at or below her baseline oxygen requirement 4. ILD, no indication for steroids currently. Continue bronchodilators. 5. GERD: Per primary service Anticipate relatively short hospitalization and outpatient follow-up with Dr. Cali. Her pulmonary issues appear stabilized/resolved. Pulmonary will sign off. Feel free to contact us with questions or concerns Admission and Anticipated Discharge Date Admission Date: January 30, 2024 Subjective Patient seen and examined. EMR reviewed. The patient reports that she is feeling better. She is coughing but not really expectorating phlegm. Anticoagulation has been resumed and she has not had any hemoptysis. She denies fevers chills or night sweats. She is on room air currently. No shortness of breath. Review of Systems 2 Review of Systems: All systems reviewed & are unremarkable except as noted in Subjective Physical Exam 2 Constitutional: WD/WN, vitals as above Neck: trachea midline, no thyromegaly Respiratory: no respiratory distress, no labored breathing, no cough and not tachypneic Auscultation: + crackles and + rhonchi; no wheezes Cardiovascular: RRR, no murmur, no edema Rate/Rhythm: regular rate; not tachycardic Heart Sounds: normal S1 and normal S2; no murmur Extremities: no edema Gastrointestinal (Abdomen): normal bowel sounds, soft, nontender, no hepatosplenomegaly Musculoskeletal: Extremities: extremities normal to inspection Skin: no rashes, warm and dry Lymphatic: no cervical lymphadenopathy Results & Data Results & Data Vital Signs (Past 12 Hours) Vital Signs Temp Pulse Pulse Resp BP Pulse Ox O2 Del Method 02/02/24 07:11 36.4 C L 68 14 134/84 99 Nasal Cannula 02/02/24 06:46 60 02/02/24 03:19 36.6 C 60 18 103/67 94 Nasal Cannula 02/02/24 00:00 140 H O2 Flow Rate 02/02/24 07:11 3 02/02/24 06:46 02/02/24 03:19 3.5 02/02/24 00:00 Laboratory Results 01/31/24 05:37 02/02/24 05:39 Diagnostic Findings No new imaging PG Care Time/CCT Total # of Minutes Spent Total Time Spent with Patient: Total time spent is greater than 50% in coordination of care (as documented) at patient's floor/unit and/or counseling patient: Coding Level of Care Code 69563 SUB INP/OBS CARE 2/35MIN Diagnoses ILD (interstitial lung disease) J84.9 Pneumoconiosis J64 Hemoptysis R04.2
[2024-02-02 10:59] VITALS: RESP 18
[2024-02-02] MEDS ORDERED: AMOXICILLIN/CLAVULANATE 875 MG TAB PO ONE (14:26)
[2024-02-02] MEDS ORDERED: DRONEDARONE HCL 400 MG TAB PO STA (14:26)
[2024-02-02 15:04] VITALS: BP 135/71; PULSE 82; TEMP 98.1; O2SAT 96
--- NOTE | 2024-02-02 22:32 | Electrocardiogram Report ---
Test Reason : Blood Pressure : */* mmHG Vent. Rate : 138 BPM Atrial Rate : 150 BPM P-R Int : * ms QRS Dur : 76 ms QT Int : 314 ms P-R-T Axes : * 154 44 degrees QTcB Int : 475 ms Atrial fibrillation with rapid ventricular response Right axis deviation Anterior infarct (cited on or before 30-Jan-2024) Nonspecific ST abnormality Abnormal ECG When compared with ECG of 30-Jan-2024 20:03, Atrial fibrillation has replaced Sinus rhythm Vent. rate has increased by 54 bpm Questionable change in QRS axis Confirmed by Georgi House ([id number]) on 02/02/2024 10:31:51 PM Referred By: REFERRED SELF Confirmed By: Georgi House
--- NOTE | 2024-02-02 22:34 | Electrocardiogram Report ---
Test Reason : Blood Pressure : */* mmHG Vent. Rate : 66 BPM Atrial Rate : 66 BPM P-R Int : 182 ms QRS Dur : 82 ms QT Int : 458 ms P-R-T Axes : 70 -52 83 degrees QTcB Int : 480 ms Sinus rhythm with Premature supraventricular complexes Left axis deviation Prolonged QT Abnormal ECG When compared with ECG of 01-Feb-2024 07:44, Sinus rhythm has replaced Atrial fibrillation Vent. rate has decreased by 72 bpm Questionable change in QRS axis Confirmed by Georgi House ([id number]) on 02/02/2024 10:33:43 PM Referred By: REFERRED SELF Confirmed By: Georgi House
--- NOTE | 2024-02-12 11:33 | Coding Query ---
CODING QUERY To promote full compliance with coding requirements relating to patient care, provider participation is requested in all cases of medical coder uncertainty. 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 Cardiomegaly with suggestion mild pulmonary edema and small pleural effusions. * 2. Pulmonary fibrosis related to chronic granulomatous disease redemonstrated resulting in architectural distortion and superior elevation of the rose. 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 Suspect either related to coughing, or potentially a bronchitic complaint. * Can de-escalate antimicrobial therapy in the setting of a normal procalcitonin, normal white blood cell count, and afebrile status. * Placed her on oral Augmentin for 5 days. * She is currently requiring only 3 L/min. Coding Question(s): Based upon the above clinical indicators, are you able to further specify the etiology of the shortness of breath and hemoptysis? 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 Thank you Venecia Cid Principal Diagnosis: "that condition established after study, to be chiefly responsible for occasioning the admission of the patient to the hospital for care." Co-Existing Principal Diagnosis: "when two or more diagnoses equally meet the criteria for principal diagnosis as determined by the circumstances of admission, diagnostic work up, and/or therapy provided, and the Alphabetic Index, Tabular List, or another coding guideline does not provide sequencing direction, any one of the diagnoses may be sequenced first." "When the physician has documented what appears to be a current diagnosis in the body of the record, but has not included the diagnosis in the final diagnostic statement, the physician should be asked whether the diagnosis should be added." (Source [facility]oding [facility] 2 QTR90. p3-4) GIOVANY
--- NOTE | 2024-02-13 22:51 | Discharge Summary ---
Discharge Summary Date of Service February 02, 2024 Principal Dx & Hospital Course #1 = Principal Diagnosis (1) PNA (pneumonia): COPD exacerbation due to pneumonia 83yo female with history of ILD likely silicosis presenting with 2 days of progressive SOB and moist cough. Possible PNA ?CHF -Admit to medical with telemetry -Check Procalcitonin and BNP -Continue supplemental O2 -Azithromycin + Cefepime -Flutter valve -Mucinex 1200mg po BID -Duonebs and Albuterol PRN -Pulmonary consultation appreciated -Patient no longer coughing on 01/30 Patient will complete course of augmentin as an outpatient. diastolic CHF exacerbation treated with IB lasix in house. Will hold diuretics as an outpatient. 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 She follows with Pulmonary -Pulmonary consultation appreciated for hypoxia and hemoptysis Plan paroxysmal atrial fibrillation Heart rate remains elevated. placed on multaq at [facility]. GERD -Continue Protonix 40mg po BID Hypertension -Continue Losartan 100mg po qHS Hypothyroid -Continue Synthyroid Atrial Fibrillation -Hold Apixaban with reported hemoptysis- patient is written for 5mg po BID, states that she takes it daily resumed at discharge Admission HPI Per Admitting Provider Cheryl Gallo is a pleasant 83yo female with history of ILD (likely secondary to silicosis) on supplemental O2 qHS, GERD, HTN presenting with shortness of breath. Patient follows with Pulmonary - sees Dr. Cali. She has had 2 days of worsening chest congestion and moist cough and sensation of chest rattling. This evening around 18:00 she developed some hemoptysis. She reports bright red blood expectorated at first then reduced to pink in color. No report of allergy symptoms or URI symptoms. No sick contacts. She denies fever, chills. She does have some chest discomfort as well. In the ER she is afebrile, HD stable 85% on room air - improved with supplemental O2 Discharge Exam General: patient resting comfortably, NAD, non-toxic in appearance, AA&O x 4 Skin: warm, dry, intact, no rashes or lesions HEENT: NC/AT, no LAD, no thyromegaly, no JVD Heart: +S1/S2, irregularly irregular, 3/6 DOMENICA at right 2nd ICS Lungs: equal air entry bilaterally, diffuse rhonchi R>L, scattered end- expiratory wheezing Abd: +BS, soft, NT/ND, no masses/organomegaly/ascites Ext: warm, 2+ pulses in UE/LE bilaterally, no clubbing/cyanosis or edema Neuro: nonfocal, patient AA&O x 4 Discharge Plan Discharge Items Patient Disposition: Home - Self-Care Reason For Visit: SOB, HEMOPTYSIS, H/O ILD Discharge Diagnosis: hemoptysis Activity: Resume your previous activity Non-emergency contact: Primary Care Provider Call non-emergency contact if: you have any medication questions Follow-up/Referrals: aMsood Sin MD [Primary Care Provider] - 02/12/24 2:00 pm (Primary Care follow up visit scheduled for February 12, 2024 at 2:00pm.) Diet: Regular Addtl Attending Provider Instructions: We will set up a followup with Dr. House in 1-2 weeks. Please take your antibiotics for 5 days. Please start multaq tonight. Pending Studies at Discharge: No Stand-Alone Forms: [employer] ([place]), Smoking Cessation Medications and DC Order Prescriptions: New amoxicillin-pot clavulanate 875-125 mg Tablet 1 tab PO BIDM Qty: 10 0RF Continued Eliquis 5 mg tablet 5 mg PO BID Patient Comments: "only takes it once a day" ascorbic acid (vitamin C) [Vitamin C] 1,000 mg Tablet 1 g PO QDL Patient Comments: LUNCH OR DINNER gabapentin 600 mg Tablet 600 mg PO HS meloxicam 15 mg Tablet 15 mg PO QAM diphenoxylate-atropine [Lomotil] 2.5-0.025 mg Tablet 1 tab PO UD PRN (Reason: Diarrhea) amlodipine 5 mg Tablet 5 mg PO HS aspirin 81 mg Tablet,Delayed Release (Dr/Ec) 81 mg PO DAILY losartan 100 mg Tablet 100 mg PO HS multivitamin Capsule 1 cap PO QDL cholecalciferol (vitamin D3) [Vitamin D3] 25 mcg (1,000 unit) Capsule 5,000 unit PO QDL Patient Comments: LUNCH OR DINNER, IT VARIES zinc 50 mg Capsule 50 mg PO QDL Patient Comments: WITH LUNCH OR DINNER omeprazole 20 mg Tablet,Delayed Release (Dr/Ec) 20 mg PO BID levothyroxine 75 mcg Capsule 75 mcg PO QAM colestipol 1 gram tablet 1 g PO DAILY Patient Comments: USUALLY ONCE OR TWICE A DAY No Action loperamide 2 mg capsule 2 mg PO Q6H PRN metoprolol tartrate 25 mg tablet 25 mg PO DAILY PRN (Reason: atrial fibrillation with HR > 100 bpm) Qty: 30 2RF Discharge Orders: Discharge Order (Routine); Ordered 02/02/24 Ordered By: Jonas Cortes/Other Patient Handouts: AFib Dc Admission Data Admit Date/Time: 01/30/24 23:27 Attending Provider: Jonas Corrales Admit Provider: Roselyn Weiner Primary Care Provider: Masood Sin Other Providers: Harsh Quintero; Georgi House Other Interventions: Discharge Summary Assessment (RN) Last Done: 02/02/24 14:55 Hospital Stay Data Consultations 01/30/24 22:33 ED Decision to Admit Stat 01/30/24 23:27 Consult Pulmonology Routine 02/01/24 06:39 Consult Cardiology Routine Pending Results Patient Have Any Pending Studies at Discharge: No Discharge Instructions Given to Patient (Per Discharging Provider) We will set up a followup with Dr. House in 1-2 weeks. Please take your antibiotics for 5 days. Please start simona chapa. Total Time Total Time Spent Total Time Spent (In Minutes): 32 Coding Level of Care Code 41005 INP/OBS DISCH >30 MIN Diagnoses PNA (pneumonia) J18.9 Hypoxia R09.02 Pneumoconiosis J64
== END 2024-02-02 15:59 | disposition home or self-care (01) | DRG 190 ==
LOC: ED 19:51 → 2N 23:27 → SUATTDRO 23:27 → 2N 01-31 00:13 → 2E 02-01 10:06